=== PATIENT | male | born 1995 | race Caucasian/White ===

== ENCOUNTER 2017-02-27 11:22 | Emergency (ER) | payer OTHER ==
[2017-02-27 11:32] VITALS: O2SAT 98
[2017-02-27] MEDS ORDERED: MORPHINE SULFATE 10 MG/ML IV ONE (11:32)
[2017-02-27] MEDS ORDERED: Sodium Chloride 0.9% 1000 ML 1,000 ML IV STA (11:32)
[2017-02-27] MEDS ORDERED: TORAdol 30 mg Injection IV ONE (11:32)
[2017-02-27] MEDS ORDERED: BENADRYL 50 MG/ML IV ONE (11:32)
[2017-02-27] MEDS ORDERED: BENADRYL 50 MG/ML ONE (11:41)
[2017-02-27] MEDS ORDERED: TORAdol 30 mg Injection ONE (11:41)
[2017-02-27] MEDS ORDERED: Sodium Chloride 0.9% 1000 ML 1,000 ML ONE (11:42)
[2017-02-27] MEDS ORDERED: MORPHINE SULFATE 10 MG/ML ONE (11:42)
--- NOTE | 2017-02-27 11:43 | ERPHSYRPT ---
- History of Present Illness Time Seen by Provider: 02/27/17 11:32 Historian: patient Patient Subjective Stated Complaint: PT REPORTS WAKING UP THIS AM TO RIGHT SIDED ABD PAIN RADIATING TO GROIN ET BACK-STATES IT FEELS DIFFICULT TO URINATE- DENIES FEVER-DENIES DIFFICUTLY WITH BOWEL MOVEMENTS Triage Nursing Assessment: PT PALE WARM ET [id number] NONTENDER TO PALP- BOWEL SOUNDS PRESENT-ABD SOFT-RESP NONLABORED Physician History: CC: right flank pain Hx: 21 y/o patient with hx of kidney stone disease. He has had [address] scans. He awoke this AM with right flank pain radiating to the right groin. Some dysuria. Nausea present. No vomiting. No hematuria. No fever or chills. Pain is severe and awoke him from sleep. Timing/Duration: today Severity of Pain-Max: severe Severity of Pain-Current: severe Allergies/Adverse Reactions: No Known Drug Allergies Allergy (Verified 02/27/17 11:29) Home Medications: No Home Meds 1 ea UD 04/19/16 [History] Hx Tetanus, Diphtheria Vaccination/Date Given: Yes Hx Influenza Vaccination/Date Given: No Hx Pneumococcal Vaccination/Date Given: No Immunizations Up to Date: Yes - Review of Systems Constitutional: No Fever, No Chills Eyes: No Symptoms Ears, Nose, & Throat: No Symptoms Respiratory: No Symptoms Cardiac: No Chest Pain Abdominal/Gastrointestinal: Nausea, No Abdominal Pain, No Vomiting Genitourinary Symptoms: Dysuria, Hesitancy, Flank Pain (right) Musculoskeletal: Back Pain (right flank) Skin: No Rash Neurological: No Headache All Other Systems: Reviewed and Negative - Past Medical History Pertinent Past Medical History: No Neurological History: No Pertinent History ENT History: No Pertinent History Cardiac History: No Pertinent History Respiratory History: Asthma Endocrine Medical History: No Pertinent History Musculoskeletal History: No Pertinent History GI Medical History: No Pertinent History History: No Pertinent History Psycho-Social History: Depression Male Reproductive Disorders: No Pertinent History Other Medical History: Childhood asthma - Past Surgical History Past Surgical History: No Neuro Surgical History: No Pertinent History Cardiac: No Pertinent History Respiratory: No Pertinent History Gastrointestinal: No Pertinent History Genitourinary: No Pertinent History Musculoskeletal: No Pertinent History Male Surgical History: No Pertinent History - Social History Smoking Status: Current every day smoker How long have you smoked: YRS Exposure to second hand smoke: Yes Drug Use: none Patient Lives Alone: No - Nursing Vital Signs Nursing Vital Signs: Initial Vital Signs Temperature 97.4 F Temperature Source Oral Pulse Rate 63 Respiratory Rate 18 Blood Pressure [Right Arm] 121/75 Pain Intensity 7 - Physical Exam General Appearance: alert, thin Eye Exam: PERRL/EOMI Ears, Nose, Throat Exam: normal ENT inspection, moist mucous membranes Neck Exam: normal inspection, non-tender, supple Respiratory Exam: normal breath sounds, lungs clear Cardiovascular Exam: regular rate/rhythm, No murmur Gastrointestinal/Abdomen Exam: soft, No tenderness, No distention, No mass, No guarding Male Genitalia Exam: normal genitalia, No hernia, No testicular tenderness Back Exam: CVA tenderness (right) Extremity Exam: normal inspection, normal range of motion Neurologic Exam: alert, oriented x 3, cooperative, 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 II-XII nml as tested, sensation nml, No motor deficits Skin Exam: warm, dry, No rash SpO2 Interpretation: normal SpO2: 98 Oxygen Delivery: Room Air - Course Nursing assessment & vital signs reviewed: Yes - Radiology Exams KUB X-ray Interpretation: Teleradiologist Report, Negative - Radiology Ultrasound Exam renal Ultrasound: Other (no hydronephrosis per RDMS) Ordered Tests: Active Orders 24 hr Category Date Time Status Clean Catch Urine Specimen STAT Care 02/27/17 11:32 Active IV Insertion STAT Care 02/27/17 11:32 Active KIDNEY [US] Stat Exams 02/27/17 11:37 Taken KUB Stat Exams 02/27/17 11:36 Completed CBC W DIFF Stat Lab 02/27/17 11:30 Completed CMP Stat Lab 02/27/17 11:30 Completed UA W/ MICROSCOPIC Stat Lab 02/27/17 11:30 Completed Medication Summary Generic Name Dose Route Start Last Admin Trade Name Freq PRN Reason Stop Dose Admin Sodium Chloride 1,000 mls @ 999 mls/hr 02/27/17 11:32 02/27/17 11:51 Sodium Chloride 0.9% 1000 Ml IV 02/27/17 12:32 999 mls/hr .Q1H1M STA Administration Morphine Sulfate 4 mg 02/27/17 12:20 Morphine Sulfate 4 Mg Inj IV 02/27/17 12:21 STAT ONE Discontinued Medications Generic Name Dose Route Start Last Admin Trade Name Freq PRN Reason Stop Dose Admin Diphenhydramine HCl 25 mg 02/27/17 11:32 02/27/17 11:51 Benadryl 50 Mg/Ml IV 02/27/17 11:33 25 mg STAT ONE Administration Diphenhydramine HCl Confirm 02/27/17 11:41 Benadryl 50 Mg/Ml Administered 02/27/17 11:42 Dose 50 mg .ROUTE .STK-MED ONE Sodium Chloride Confirm 02/27/17 11:42 Sodium Chloride 0.9% 1000 Ml Administered 02/27/17 11:43 Dose 1,000 mls @ ud .ROUTE .STK-MED ONE Ketorolac Tromethamine 30 mg 02/27/17 11:32 02/27/17 11:51 Toradol 30 Mg Injection IV 02/27/17 11:33 30 mg STAT ONE Administration Ketorolac Tromethamine Confirm 02/27/17 11:41 Toradol 30 Mg Injection Administered 02/27/17 11:42 Dose 30 mg .ROUTE .STK-MED ONE Morphine Sulfate 6 mg 02/27/17 11:32 02/27/17 11:52 Morphine Sulfate 10 Mg/Ml IV 02/27/17 11:33 6 mg STAT ONE Administration Morphine Sulfate Confirm 02/27/17 11:42 Morphine Sulfate 10 Mg/Ml Administered 02/27/17 11:43 Dose 10 mg .ROUTE .STK-MED ONE Lab/Rad Data: Laboratory Result Diagrams 02/27/17 11:30 02/27/17 11:30 Laboratory Results 02/27/17 02/27/17 02/27/17 Range/Units 11:30 11:30 11:30 WBC 6.4 (4.0-10.5) K/mm3 RBC 5.57 (4.1-5.6) M/mm3 Hgb 16.3 (12.5-18.0) gm/dl Hct 47.6 (42-50) % MCV 85.5 (78-100) fl MCH 29.3 (26-32) pg MCHC 34.2 (32-36) g/dl RDW 12.8 (11.5-14.0) % Plt Count 216 (150-450) K/mm3 MPV 9.3 (6-9.5) fl Gran % 56.3 (36.0-66.0) % Lymphocytes % 35.6 (24.0-44.0) % Monocytes % 4.5 (0.0-12.0) % Eosinophils % 3.3 (0.00-5.0) % Basophils % 0.3 (0.0-0.4) % Basophils # 0.02 (0-0.4) Sodium 138 (136-145) mEq/L Potassium 4.1 (3.5-5.1) mEq/L Chloride 105 (98-107) mEq/L Carbon Dioxide 27.5 (21-32) mEq/L Anion Gap 9.7 (5-15) MEQ/L BUN 10 (9-20) mg/dL Creatinine 1.00 (0.55-1.30) mg/dl Estimated GFR > 60 ML/MIN Glucose 98 (70-110) MG/DL Calcium 9.5 (8.5-10.1) mg/dL Total Bilirubin 0.3 (0.2-1.0) mg/dL AST 29 (15-37) U/L ALT 29 (12-78) U/L Alkaline Phosphatase 72 (46-116) U/L Serum Total Protein 7.8 (6.4-8.2) gm/dL Albumin 4.1 (3.4-5.0) g/dL Ur Collection Type CLEAN CATCH Urine Color YELLOW (YELLOW) Urine Appearance CLEAR (CLEAR) Urine pH 6.5 (5-6) Ur Specific [place] 1.020 (1.005-1.025) Urine Protein 30 (Negative) Urine Glucose (UA) NEGATIVE (NEGATIVE) mg/dL Urine Ketones NEGATIVE (NEGATIVE) Urine Nitrite NEGATIVE (NEGATIVE) Urine Bilirubin SMALL (NEGATIVE) Urine Urobilinogen 4 (0-1) mg/dL Urine WBC (Auto) NEGATIVE (NEGATIVE) Urine RBC (Auto) MODERATE (0-5) José Miguel/ul Urine Microscopic RBC 10-15 (0-2) /HPF Urine Microscopic WBC 0-2 (0-5) /HPF Ur Epithelial Cells RARE (FEW) /HPF Urine Bacteria RARE (NEGATIVE) /HPF Urine Mucus MODERATE (NEGATIVE) /HPF Specimen Received [id number] - Progress Progress Note: 02/27/17 11:43 Will get UA, KUB, renal sonogram. 02/27/17 12:21 Pain medication given. He appears to have renal colic which is consistent with prior hx. Some blood in urine. Negative studies. Re-examined testicles and no point tenderness. He declines scrotal ultrasound as he also believes this is renal stone pain. Will empirically treat. Follow up with Dr garcia advised. Counseled pt/family regarding: lab results, diagnosis, need for follow-up, rad results - Departure Time of Disposition: 12:22 Departure Disposition: Home Clinical Impression: Right flank pain, Hematuria, hx renal stone disease Condition: Stable Critical Care Time: No Referrals: ANDRESSA GARCIA [ACTIVE STAFF] - Instructions: Kidney Stones, Testicular Pain Additional Instructions: Return to ER right away for testicle pain or swelling, fever, vomiting or concerns. No driving or operating machinery today or while taking norco. Follow up with Dr Garcia this week. Rx norco. Strain urine for stone. Prescriptions: Hydrocodone Bit/Acetaminophen [[place] 5-325 Tablet] 1 each PO Q6H PRN PRN #15 tablet PRN Reason: Pain
[2017-02-27 11:48] LABS: BASOPHIL % 0.3 % (0.0-0.4); Eosinophil % 3.3 % (0.00-5.0); Granulocytes % 56.3 % (36.0-66.0); Lymphocytes % 35.6 % (24.0-44.0); Mean Cell Volume 85.5 fl (78-100); Mean Corpuscular Hemoglobin 29.3 pg (26-32); Mean Platelet Volume 9.3 fl (6-9.5); Monocytes % 4.5 % (0.0-12.0); Platelet Count 216 K/mm3 (150-450); Red Blood Count 5.57 M/mm3 (4.1-5.6); Red Cell Distribution Width 12.8 % (11.5-14.0); White Blood Count 6.4 K/mm3 (4.0-10.5)
[2017-02-27 11:51] LABS: Collection Type CLEAN CATCH
[2017-02-27 11:52] LABS: COMPLETE URINE MICROSCOPIC? YES; Ph 6.5 (5-6)
[2017-02-27 12:01] LABS: Bacteria RARE /HPF (NEGATIVE); Epithelial Cells RARE /HPF (FEW); Mucus MODERATE /HPF (NEGATIVE); WBC 0-2 /HPF (0-5)
[2017-02-27 12:05] LABS: ALBUMIN 4.1 g/dL (3.4-5.0); ALKALINE PHOSPHATASE 72 U/L (46-116); ANION GAP 9.7 MEQ/L (5-15); BILIRUBIN,TOTAL 0.3 mg/dL (0.2-1.0); BLOOD UREA NITROGEN 10 mg/dL (9-20); CHLORIDE 105 mEq/L (98-107); Carbon Dioxide 27.5 mEq/L (21-32); Glucose 98 MG/DL (70-110); Potassium 4.1 mEq/L (3.5-5.1); SGOT/AST 29 U/L (15-37); SGPT/ALT 29 U/L (12-78); SODIUM 138 mEq/L (136-145); Total Protein 7.8 gm/dL (6.4-8.2)
--- NOTE | 2017-02-27 12:10 | XRAY ---
Indication: Right abdominal/flank pain. Comparison: November 03, 2011. KUB nonacute and nonobstructed. Solid organs osseous structures unremarkable. Impression: Stable negative KUB. CT renal stone study may yield further information if there is clinical concern for renal stone/obstructive uropathy.
[2017-02-27] MEDS ORDERED: MORPHINE SULFATE 4 MG INJ IV ONE (12:20)
[2017-02-27] MEDS ORDERED: MORPHINE SULFATE 4 MG INJ ONE (12:22)
[2017-02-27 12:29] VITALS: BP 106/62; PULSE 78
--- NOTE | 2017-02-27 12:36 | XRAY ---
Indication: Right abdomen/flank pain. Two-dimensional renal sonogram performed. Comparison: None Both kidneys normal in reniform shape with normal color perfusion. Right kidney measures 11.4 x 4.2 x 5.4 cm and the left measures 10.8 x 4.0 x 4.4 cm. No suspicious renal mass, hydronephrosis, or perinephric fluid. Cortical medullary differentiation is preserved without cortical thinning. Urinary bladder is empty and therefore not evaluated. Impression: Negative renal sonogram.
== END 2017-02-27 12:59 | disposition home or self-care (01) ==
LOC: ED 11:22
DX: R10.9 Unspecified abdominal pain (principal); R31.9 Hematuria, unspecified; N23 Unspecified renal colic; R30.0 Dysuria; R11.0 Nausea
CPT/HCPCS: 36000; 36415; 74000; 76770; 80053; 81000; 85025; 96360; 96374; 96375; 96376; 99284; J1200; J1885; J2270

== ENCOUNTER 2017-06-11 18:34 | Emergency (ER) | payer SELFPAY ==
[2017-06-11] MEDS ORDERED: TORAdol 30 mg Injection IV ONE (19:22)
[2017-06-11] MEDS ORDERED: Phenergan 25 MG INJ IV ONE (19:22)
--- NOTE | 2017-06-11 19:25 | ERPHSYRPT ---
- History of Present Illness Time Seen by Provider: 06/11/17 19:10 Historian: patient Exam Limitations: no limitations Patient Subjective Stated Complaint: pt co pain to right and left flank area since yesterday, has hx of kidney, no fever, nauseated Triage Nursing Assessment: pt walked in holding back, resp easy, skin w/d, pink , urine yellow and cloudy Physician History: SINCE YESTERDAY PT HAS HAD SHARP STABBING RIGHT LOWER BACK PAIN AND RIGHT FLANK PAIN WITH NAUSEA. LAST BM WAS YESTERDAY & WNL. PT DENIES FEVER, VOMITING, CHEST PAIN, SHORTNESS OF AIR. Allergies/Adverse Reactions: No Known Drug Allergies Allergy (Verified 06/11/17 18:47) Home Medications: No Home Meds [No Home Meds] 1 ea UD 04/19/16 [History] Hx Tetanus, Diphtheria Vaccination/Date Given: No Hx Influenza Vaccination/Date Given: No Hx Pneumococcal Vaccination/Date Given: No Immunizations Up to Date: Yes - Review of Systems Constitutional: No Fever Abdominal/Gastrointestinal: Nausea, Other (RIGHT FLANK AND RIGHT LOWER BACK PAIN ), No Vomiting, No Diarrhea All Other Systems: Reviewed and Negative - Past Medical History Pertinent Past Medical History: No Neurological History: No Pertinent History ENT History: No Pertinent History Cardiac History: No Pertinent History Respiratory History: Asthma Endocrine Medical History: No Pertinent History Musculoskeletal History: No Pertinent History GI Medical History: No Pertinent History History: No Pertinent History Psycho-Social History: Depression Male Reproductive Disorders: No Pertinent History Other Medical History: Childhood asthma,kidney stones - Past Surgical History Past Surgical History: No Neuro Surgical History: No Pertinent History Cardiac: No Pertinent History Respiratory: No Pertinent History Gastrointestinal: No Pertinent History Genitourinary: No Pertinent History Musculoskeletal: No Pertinent History Male Surgical History: No Pertinent History Other Surgical History: DENIES SURGERY - Social History Smoking Status: Current some day smoker How long have you smoked: YRS Exposure to second hand smoke: Yes Drug Use: none Patient Lives Alone: No - Nursing Vital Signs Nursing Vital Signs: Initial Vital Signs Temperature 98.3 F 06/11/17 18:43 Pulse Rate 72 06/11/17 18:43 Respiratory Rate 16 06/11/17 18:43 Blood Pressure 122/84 06/11/17 18:43 O2 Sat by Pulse Oximetry 99 06/11/17 18:43 Pain Scale Pain Intensity [] 8 Pain Intensity 6 - Physical Exam General Appearance: alert Eye Exam: PERRL/EOMI Ears, Nose, Throat Exam: pharynx normal, moist mucous membranes Neck Exam: normal inspection Respiratory Exam: lungs clear Cardiovascular Exam: normal heart sounds Gastrointestinal/Abdomen Exam: soft, normal bowel sounds, No tenderness Back Exam: normal range of motion Extremity Exam: normal inspection, No pedal edema Neurologic Exam: alert, cooperative Skin Exam: warm, dry SpO2 Interpretation: normal SpO2: 99 Oxygen Delivery: Room Air - Course Nursing assessment & vital signs reviewed: Yes - CT Exams Abdomen/Pelvis CT Interpretation: Discussed w/radiologist (COMPARED TO 04/19/16: NONOBSTRUCTING MICROCALCULUS IN EACH KIDNEY. MODERATE FECAL STASIS WITHOUT OBSTRUCTION. APPENDIX NOT SEEN. REMAINING ABD/PEL NEGATIVE.) Ordered Tests: Active Orders 24 hr Category Date Time Status Clean Catch Urine Specimen STAT Care 06/11/17 19:22 Active IV Insertion STAT Care 06/11/17 19:22 Active ABDOMEN AND PELVIS W/0 CONTRAS [CT] Stat Exams 06/11/17 19:23 Taken AMYLASE Stat Lab 06/11/17 19:15 Completed CBC W DIFF Stat Lab 06/11/17 19:15 Completed CMP Stat Lab 06/11/17 19:15 Completed LIPASE Stat Lab 06/11/17 19:15 Completed MAG [MAGNESIUM] Stat Lab 06/11/17 19:15 Completed UA W/RFX UR CULTURE Stat Lab 06/11/17 19:20 Completed Urine Triage Profile Stat Lab 06/11/17 19:20 Completed Medication Summary Generic Name Dose Route Start Last Admin Trade Name Freq PRN Reason Stop Dose Admin Sodium Chloride 1,000 mls @ 100 mls/hr 06/11/17 19:30 06/11/17 19:30 Sodium Chloride 0.9% 1000 Ml IV 07/11/17 19:29 100 mls/hr .Q10H MARIMAR Administration Discontinued Medications Generic Name Dose Route Start Last Admin Trade Name Freq PRN Reason Stop Dose Admin Ketorolac Tromethamine 30 mg 06/11/17 19:22 06/11/17 19:31 Toradol 30 Mg Injection IV 06/11/17 19:23 30 mg STAT ONE Administration Ketorolac Tromethamine Confirm 06/11/17 19:28 Toradol 30 Mg Injection Administered 06/11/17 19:29 Dose 30 mg .ROUTE .STK-MED ONE Promethazine HCl 12.5 mg 06/11/17 19:22 06/11/17 19:30 Phenergan 25 Mg Inj IV 06/11/17 19:23 12.5 mg STAT ONE Administration Promethazine HCl Confirm 06/11/17 19:28 Phenergan 25 Mg Inj Administered 06/11/17 19:29 Dose 25 mg .ROUTE .STK-MED ONE Lab/Rad Data: Laboratory Result Diagrams 06/11/17 19:15 06/11/17 19:15 Laboratory Results 06/11/17 06/11/17 06/11/17 Range/Units 19:20 19:20 19:15 WBC (4.0-10.5) K/mm3 RBC (4.1-5.6) M/mm3 Hgb (12.5-18.0) gm/dl Hct (42-50) % MCV (78-100) fl MCH (26-32) pg MCHC (32-36) g/dl RDW (11.5-14.0) % Plt Count (150-450) K/mm3 MPV (6-9.5) fl Gran % (36.0-66.0) % Lymphocytes % (24.0-44.0) % Monocytes % (0.0-12.0) % Eosinophils % (0.00-5.0) % Basophils % (0.0-0.4) % Basophils # (0-0.4) Sodium (136-145) mEq/L Potassium (3.5-5.1) mEq/L Chloride (98-107) mEq/L Carbon Dioxide (21-32) mEq/L Anion Gap (5-15) MEQ/L BUN (9-20) mg/dL Creatinine (0.55-1.30) mg/dl Estimated GFR ML/MIN Glucose (70-110) MG/DL Calcium (8.5-10.1) mg/dL Magnesium 2.0 (1.8-2.4) mg/dL Total Bilirubin (0.2-1.0) mg/dL AST (15-37) U/L ALT (12-78) U/L Alkaline Phosphatase (46-116) U/L Serum Total Protein (6.4-8.2) gm/dL Albumin (3.4-5.0) g/dL Amylase (25-115) U/L Lipase (73-393) U/L Ur Collection Type CLEAN CATCH Urine Color YELLOW (YELLOW) Urine Appearance CLOUDY (CLEAR) Urine pH 8.0 (5-6) Ur Specific [place] 1.010 (1.005-1.025) Urine Protein NEGATIVE (Negative) Urine Ketones NEGATIVE (NEGATIVE) Urine Blood NEGATIVE (0-5) José Miguel/ul Urine Nitrite NEGATIVE (NEGATIVE) Urine Bilirubin NEGATIVE (NEGATIVE) Urine Urobilinogen NORMAL (0-1) mg/dL Ur Leukocyte Esterase NEGATIVE (NEGATIVE) Urine Glucose NEGATIVE (NEGATIVE) mg/dL Urine Opiates Level NEG. (NEGATIVE) Ur Methadone NEG. (NEGATIVE) Urine Barbiturates NEG. (NEGATIVE) Ur Phencyclidine (PCP) NEG. (NEGATIVE) Urine Amphetamine NEG. (NEGATIVE) U Benzodiazepine Level NEG. (NEGATIVE) Urine Cocaine NEG. (NEGATIVE) Urine Marijuana (THC) POS. (NEGATIVE) Specimen Received 06/11/17 1930 06/11/17 06/11/17 Range/Units 19:15 19:15 WBC 8.5 (4.0-10.5) K/mm3 RBC 5.21 (4.1-5.6) M/mm3 Hgb 15.4 (12.5-18.0) gm/dl Hct 44.9 (42-50) % MCV 86.2 (78-100) fl MCH 29.6 (26-32) pg MCHC 34.3 (32-36) g/dl RDW 13.5 (11.5-14.0) % Plt Count 239 (150-450) K/mm3 MPV 9.5 (6-9.5) fl Gran % 58.5 (36.0-66.0) % Lymphocytes % 32.8 (24.0-44.0) % Monocytes % 5.1 (0.0-12.0) % Eosinophils % 3.2 (0.00-5.0) % Basophils % 0.4 (0.0-0.4) % Basophils # 0.03 (0-0.4) Sodium 142 (136-145) mEq/L Potassium 3.7 (3.5-5.1) mEq/L Chloride 105 (98-107) mEq/L Carbon Dioxide 25.7 (21-32) mEq/L Anion Gap 15.0 (5-15) MEQ/L BUN 12 (9-20) mg/dL Creatinine 0.96 (0.55-1.30) mg/dl Estimated GFR > 60 ML/MIN Glucose 112 H (70-110) MG/DL Calcium 9.2 (8.5-10.1) mg/dL Magnesium (1.8-2.4) mg/dL Total Bilirubin 0.30 (0.2-1.0) mg/dL AST 93 H (15-37) U/L ALT 194 H (12-78) U/L Alkaline Phosphatase 85 (46-116) U/L Serum Total Protein 7.9 (6.4-8.2) gm/dL Albumin 4.2 (3.4-5.0) g/dL Amylase 71 (25-115) U/L Lipase 149 (73-393) U/L Ur Collection Type Urine Color (YELLOW) Urine Appearance (CLEAR) Urine pH (5-6) Ur Specific [place] (1.005-1.025) Urine Protein (Negative) Urine Ketones (NEGATIVE) Urine Blood (0-5) José Miguel/ul Urine Nitrite (NEGATIVE) Urine Bilirubin (NEGATIVE) Urine Urobilinogen (0-1) mg/dL Ur Leukocyte Esterase (NEGATIVE) Urine Glucose (NEGATIVE) mg/dL Urine Opiates Level (NEGATIVE) Ur Methadone (NEGATIVE) Urine Barbiturates (NEGATIVE) Ur Phencyclidine (PCP) (NEGATIVE) Urine Amphetamine (NEGATIVE) U Benzodiazepine Level (NEGATIVE) Urine Cocaine (NEGATIVE) Urine Marijuana (THC) (NEGATIVE) Specimen Received - Departure Time of Disposition: 20:50 Departure Disposition: Home Clinical Impression: RIGHT LOWER BACK/FLANK PAIN Condition: Stable Critical Care Time: No Referrals: DOCTOR,NO FAMILY [Primary Care Provider] - Instructions: Low Back Pain Additional Instructions: FOLLOW UP WITH PRIVATE DOCTOR TOMORROW. Prescriptions: Naproxen [Naprosyn] 500 mg PO [id number] PRN #20 tablet PRN Reason: Pain
[2017-06-11] MEDS ORDERED: Sodium Chloride 0.9% 1000 ML 1,000 ML ONE (19:28)
[2017-06-11] MEDS ORDERED: TORAdol 30 mg Injection ONE (19:28)
[2017-06-11] MEDS ORDERED: Phenergan 25 MG INJ ONE (19:28)
[2017-06-11 19:29] LABS: BASOPHIL % 0.4 % (0.0-0.4); Eosinophil % 3.2 % (0.00-5.0); Granulocytes % 58.5 % (36.0-66.0); Lymphocytes % 32.8 % (24.0-44.0); Mean Cell Volume 86.2 fl (78-100); Mean Corpuscular Hemoglobin 29.6 pg (26-32); Mean Platelet Volume 9.5 fl (6-9.5); Monocytes % 5.1 % (0.0-12.0); Platelet Count 239 K/mm3 (150-450); Red Blood Count 5.21 M/mm3 (4.1-5.6); Red Cell Distribution Width 13.5 % (11.5-14.0); White Blood Count 8.5 K/mm3 (4.0-10.5)
[2017-06-11] MEDS ORDERED: Sodium Chloride 0.9% 1000 ML 1,000 ML IV SCH (19:30)
[2017-06-11 19:41] LABS: ADD URINE CULTURE? NO (NO); Bilirubin NEGATIVE (NEGATIVE); Blood NEGATIVE Ery/ul (0-5); COMPLETE URINE MICROSCOPIC? NO; Collection Type CLEAN CATCH; Glucose NEGATIVE (NEGATIVE); Leukocyte Esterase NEGATIVE (NEGATIVE)
[2017-06-11 19:48] LABS: ALBUMIN 4.2 g/dL (3.4-5.0); ALKALINE PHOSPHATASE 85 U/L (46-116); BLOOD UREA NITROGEN 12 mg/dL (9-20); CHLORIDE 105 mEq/L (98-107); Carbon Dioxide 25.7 mEq/L (21-32); Glucose 112 MG/DL (70-110); LIPASE 149 U/L (73-393); Potassium 3.7 mEq/L (3.5-5.1); SGOT/AST 93 U/L (15-37); SGPT/ALT 194 U/L (12-78); SODIUM 142 mEq/L (136-145); Total Protein 7.9 gm/dL (6.4-8.2)
[2017-06-11] MEDS ORDERED: MORPHINE SULFATE 2 MG INJ IV ONE (20:49)
[2017-06-11] MEDS ORDERED: MORPHINE SULFATE 2 MG INJ ONE (20:52)
[2017-06-11 21:01] VITALS: BP 110/60; PULSE 76; O2SAT 100
--- NOTE | 2017-06-12 08:31 | XRAY ---
Indication: Right flank pain. History kidney stone. Multiple contiguous axial images obtained through the abdomen and pelvis without contrast as ordered. Comparison: April 19, 2016. Lung bases clear. Heart is not enlarged. Stomach is distended with food. Noncontrasted bowel loops appear nonobstructed. There is now moderate diffuse scattered colonic fecal debris. Appendix not seen. No free fluid/air. Stable nonobstructing left renal micro-calculus with new nonobstructing punctate right renal calculus. Gallbladder is contracted without gallstones. Remaining liver, pancreas, spleen, adrenal glands, kidneys, ureters, bladder, and aorta appear unremarkable for noncontrast exam. Osseous structures intact. Impression: 1. Nonobstructing micro-calculus in each kidney. 2. Fecal stasis without obstruction. 3. No acute intra-abdominal/pelvic abnormalities on this noncontrast exam. CT DI 8.25
== END 2017-06-11 21:02 | disposition home or self-care (01) ==
LOC: ED 18:34
DX: M54.5 Low back pain (principal); R10.9 Unspecified abdominal pain
CPT/HCPCS: 36000; 36415; 74176; 80053; 80307; 81002; 82150; 83690; 83735; 85025; 96360; 96361; 96374; 96375; 99284; J1885; J2270; J2550

== ENCOUNTER 2017-07-31 14:04 | Emergency (ER) | payer OTHER, SELFPAY ==
[2017-07-31] MEDS ORDERED: TORAdol 30 mg Injection IM ONE (14:40)
--- NOTE | 2017-07-31 14:44 | ERPHSYRPT ---
- History of Present Illness Time Seen by Provider: 07/31/17 14:36 Source: patient Exam Limitations: no limitations Patient Subjective Stated Complaint: sharp lower back pain for three days. denies any injury. states he stands at work at [employer] for long periods. Triage Nursing Assessment: ambulated to room per self without difficulty. skin w/d, color normal. liang without difficulty. Physician History: 22-year-old white male arrives with complaint of pain in the right low lumbosacral region sharp worse with movement symptoms for 2-3 days. He denies injury he does state he stands a lot at work. Denies any hematuria dysuria Patient states he has had kidney stones in the past for this feels different. Past medical history kidney stones, asthma, depression Past surgical history is negative Timing/Duration: day(s) (2-3 days) Method of Injury: unknown Quality: sharp Back Pain Location: lumbar spine (lumbosacral region) Severity of Pain-Max: moderate Severity of Pain-Current: moderate Modifying Factors: Improves With: movement. Worsens With: cold therapy, immobilization, pain medication, rest Associated Symptoms: lower back pain, No fever, No chills, No sweating, No urinary incontinence, No loss of bowel control, No constipation, No nausea, No vomiting, No problems urinating, No light-headedness, No dizziness, No numbness in legs/feet, No weakness, No sensory/motor loss, No tingling in legs/feet, No muscle spasms Previous symptoms: no prior history Allergies/Adverse Reactions: No Known Drug Allergies Allergy (Verified 07/31/17 14:22) Home Medications: No Home Meds [No Home Meds] 1 abhinav BRANDY 04/19/16 [History] Hx Tetanus, Diphtheria Vaccination/Date Given: No Hx Influenza Vaccination/Date Given: No Hx Pneumococcal Vaccination/Date Given: No - Review of Systems Constitutional: No Fever, No Chills Eyes: No Symptoms Ears, Nose, & Throat: No Symptoms Respiratory: No Cough, No Dyspnea Cardiac: No Chest Pain, No Edema, No Syncope Abdominal/Gastrointestinal: No Abdominal Pain, No Nausea, No Vomiting, No Diarrhea Genitourinary Symptoms: No Dysuria Musculoskeletal: Back Pain, No Arthralgias, No Neck Pain, No Deformity, No Fall , No Injury, No Joint Redness, No Joint Pain, No Joint Swelling, No Myalgias, No Other Skin: No Rash Neurological: No Dizziness, No Focal Weakness, No Sensory Changes Psychological: No Symptoms Endocrine: No Symptoms All Other Systems: Reviewed and Negative - Past Medical History Pertinent Past Medical History: Yes Neurological History: No Pertinent History ENT History: No Pertinent History Cardiac History: No Pertinent History Respiratory History: Asthma Endocrine Medical History: No Pertinent History Musculoskeletal History: No Pertinent History GI Medical History: No Pertinent History History: No Pertinent History Psycho-Social History: Depression Male Reproductive Disorders: No Pertinent History Other Medical History: Childhood asthma,kidney stones - Past Surgical History Past Surgical History: No Neuro Surgical History: No Pertinent History Cardiac: No Pertinent History Respiratory: No Pertinent History Gastrointestinal: No Pertinent History Genitourinary: No Pertinent History Musculoskeletal: No Pertinent History Male Surgical History: No Pertinent History Other Surgical History: DENIES SURGERY - Social History Smoking Status: Current every day smoker How long have you smoked: 10 Exposure to second hand smoke: No Drug Use: none Patient Lives Alone: No - Nursing Vital Signs Nursing Vital Signs: Initial Vital Signs Temperature 97.3 F 07/31/17 14:16 Pulse Rate 70 07/31/17 14:16 Respiratory Rate 16 07/31/17 14:16 Blood Pressure 140/91 07/31/17 14:16 O2 Sat by Pulse Oximetry 100 07/31/17 14:16 Pain Scale Pain Intensity 7 - Physical Exam General Appearance: moderate distress Eye Exam: PERRL/EOMI, eyes nml inspection Ears, Nose, Throat Exam: normal ENT inspection, TMs normal, pharynx normal, moist mucous membranes, No dry mucous membranes, No TM abnormal (R), No TM abnormal (L), No pharyngeal erythema, No tonsillar exudate Neck Exam: normal inspection, non-tender, supple, full range of motion, No meningismus, No midline tenderness Respiratory Exam: normal breath sounds, lungs clear, No respiratory distress Cardiovascular Exam: regular rate/rhythm, normal heart sounds Gastrointestinal Exam: soft, No tenderness, No mass Back Exam: other (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 clerk with 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 right low lumosacral area) Extremity Exam: normal inspection, normal range of motion, No calf tenderness, No pedal edema Peripheral Pulses: dorsalis-pedis (R): 2+, dorsalis-pedis (L): 2+ Neurologic Exam: alert, oriented x 3, cooperative, hand cutter II-XII nml as tested, normal mood/affect, nml station & gait, sensation nml, No motor deficits Skin Exam: normal color, warm, dry, No rash SpO2 Interpretation: normal (100%) SpO2: 100 Oxygen Delivery: Room Air - Course Nursing assessment & vital signs reviewed: Yes - Radiology Exams L-Spine X-ray Interpretation: Discussed w/ radiologist (Negative lumbar spine, Known left microcalculus) Ordered Tests: Active Orders 24 hr Category Date Time Status LUMBAR LIMITED (2 OR 3 VIEWS) Stat Exams 07/31/17 14:40 Completed Medication Summary Discontinued Medications Generic Name Dose Route Start Last Admin Trade Name Freq PRN Reason Stop Dose Admin Ketorolac Tromethamine 60 mg 07/31/17 14:40 07/31/17 15:04 Toradol 30 Mg Injection IM 07/31/17 14:41 60 mg STAT ONE Administration Ketorolac Tromethamine Confirm 07/31/17 15:02 Toradol 30 Mg Injection Administered 07/31/17 15:03 Dose 60 mg .ROUTE .[employer] ONE - Progress Progress: improved Progress Note: 07/31/17 15:11 Patient with negative lumbar spine x-rays patient does have a known left renal micro-calculi. Will place patient on Chandler Flexeril to take Advil at home. . - Departure Time of Disposition: 15:12 Departure Disposition: Home Clinical Impression: Back pain Qualifiers: Back pain location: low back pain Chronicity: acute Back pain laterality: right Sciatica presence: without sciatica Qualified Code(s): M54.5 - Low back pain Condition: Fair Critical Care Time: No Referrals: DOCTOR,NO FAMILY [Primary Care Provider] - Instructions: Low Back Pain Additional Instructions: Return home. Advil 2-3 tablets orally 3 times a day with food for 5 days. Flexeril 10 mg orally 3 times a day for 5 days. Chandler 5/325 #12 one orally every 4-6 hours as needed for pain. Follow-up with your family doctor if symptoms are worse, no better in 48 hours, or persist longer than one week. Return for acute distress or for severe symptoms. Prescriptions: Cyclobenzaprine HCl [Flexeril] 10 mg PO TID #15 tablet Hydrocodone Bit/Acetaminophen [Chandler 5/325Mg] 1 tab PO Q4-6HPRN PRN #12 tablet PRN Reason: Pain
[2017-07-31] MEDS ORDERED: TORAdol 30 mg Injection ONE (15:02)
--- NOTE | 2017-07-31 15:06 | XRAY ---
Indication: Right-sided low back pain. No known injury. Comparison: None 3 views of the lumbar spine demonstrates 5 lumbar vertebral segments in normal alignment with vertebral body heights and disc spaces preserved. No acute fracture, subluxation, or suspicious bony lesions. Incidental CT proven left renal micro-calculus. Impression: Negative lumbar spine. Known left renal micro-calculus.
[2017-07-31 15:08] VITALS: BP 117/79; PULSE 64
[2017-07-31 15:10] VITALS: O2SAT 100
== END 2017-07-31 15:55 | disposition home or self-care (01) ==
LOC: ED 14:04
DX: M54.5 Low back pain (principal)
CPT/HCPCS: 72100; 99282; 99284; J1885

== ENCOUNTER 2017-08-07 19:29 | Emergency (ER) | payer OTHER, SELFPAY ==
[2017-08-07] MEDS ORDERED: TORAdol 30 mg Injection IV ONE (19:57)
[2017-08-07] MEDS ORDERED: Sodium Chloride 0.9% 1000 ML 1,000 ML IV STA (19:57)
--- NOTE | 2017-08-07 20:02 | ERPHSYRPT ---
- History of Present Illness Time Seen by Provider: 08/07/17 19:50 Source: patient Exam Limitations: no limitations Physician History: 22 y/o male comes back to the ER with complaints of bilateral flank pain for the past 2 weeks. Pt was seen on 07/31 for back pain related to muscle related. Pt describes the pain as sharp, constant, 9/10, and not relieved by norco and advil. Pt says now it does feel like a kidney stone he has had in the past. Pt denies any fever, chills, abdominal pain, nausea, vomiting or urinary symptoms. Timing/Duration: day(s) Activites at Onset: none Quality: sharpness Onset Location: right flank, left flank Pain Radiation: none Severity of Pain-Max: severe Severity of Pain-Current: severe Modifying Factors: Improves With: nothing Associated Symptoms: denies symptoms Prior abdominal problems: similar symptoms Sexual intercourse history: non-contributory Allergies/Adverse Reactions: No Known Drug Allergies Allergy (Verified 07/31/17 14:22) Home Medications: No Home Meds [No Home Meds] 1 [facility] 04/19/16 [History] Hx Tetanus, Diphtheria Vaccination/Date Given: No Hx Influenza Vaccination/Date Given: No Hx Pneumococcal Vaccination/Date Given: No - Past Medical History Pertinent Past Medical History: Yes Neurological History: No Pertinent History ENT History: No Pertinent History Cardiac History: No Pertinent History Respiratory History: Asthma Endocrine Medical History: No Pertinent History Musculoskeletal History: No Pertinent History GI Medical History: No Pertinent History History: No Pertinent History Psycho-Social History: Depression Male Reproductive Disorders: No Pertinent History Other Medical History: Childhood asthma,kidney stones - Past Surgical History Past Surgical History: No Neuro Surgical History: No Pertinent History Cardiac: No Pertinent History Respiratory: No Pertinent History Gastrointestinal: No Pertinent History Genitourinary: No Pertinent History Musculoskeletal: No Pertinent History Male Surgical History: No Pertinent History Other Surgical History: DENIES SURGERY - Social History Smoking Status: Current every day smoker How long have you smoked: 10 Exposure to second hand smoke: No Drug Use: none Patient Lives Alone: No - Review of Systems Constitutional: No Fever, No Chills Eyes: No Symptoms Ears, Nose, & Throat: No Symptoms Respiratory: No Cough, No Dyspnea Cardiac: No Chest Pain, No Edema, No Syncope Abdominal/Gastrointestinal: No Abdominal Pain, No Nausea, No Vomiting, No Diarrhea Genitourinary Symptoms: Flank Pain, No Dysuria, No Frequency, No Hematuria Musculoskeletal: No Back Pain, No Neck Pain Skin: No Rash Neurological: No Dizziness, No Focal Weakness, No Sensory Changes Psychological: No Symptoms Endocrine: No Symptoms All Other Systems: Reviewed and Negative - Nursing Vital Signs Nursing Vital Signs: Initial Vital Signs Temperature 97.7 F 08/07/17 20:06 Pulse Rate 68 08/07/17 20:06 Respiratory Rate 18 08/07/17 20:06 Blood Pressure 121/55 08/07/17 20:06 O2 Sat by Pulse Oximetry 97 08/07/17 20:06 Pain Scale Pain Intensity [Lower Back] 8 Pain Intensity 3 - Physical Exam General Appearance: mild distress, alert Eye Exam: PERRL/EOMI Ears, Nose, Throat Exam: pharynx normal, moist mucous membranes Neck Exam: normal inspection, supple Respiratory Exam: normal breath sounds, lungs clear Cardiovascular Exam: regular rate/rhythm, No edema Gastrointestinal/Abdomen Exam: soft, normal bowel sounds, No tenderness Back Exam: normal inspection, CVA tenderness Extremity Exam: normal inspection, normal range of motion, No pedal edema Neurologic Exam: alert, oriented x 3, cooperative, sensation nml, No motor deficits Skin Exam: normal color, warm, dry, No rash - Course Nursing assessment & vital signs reviewed: Yes Ordered Tests: Active Orders 24 hr Category Date Time Status IV Insertion STAT Care 08/07/17 19:57 Active ABDOMEN AND PELVIS W/0 CONTRAS [CT] Stat Exams 08/07/17 19:56 Taken BMP Stat Lab 08/07/17 20:15 Completed CBC W DIFF Stat Lab 08/07/17 20:15 Completed UA W/RFX UR CULTURE Stat Lab 08/07/17 20:30 Completed Medication Summary Discontinued Medications Generic Name Dose Route Start Last Admin Trade Name Freq PRN Reason Stop Dose Admin Sodium Chloride 1,000 mls @ 999 mls/hr 08/07/17 19:57 08/07/17 20:32 Sodium Chloride 0.9% 1000 Ml IV 08/07/17 20:57 999 mls/hr .Q1H1M STA Administration Sodium Chloride Confirm 08/07/17 20:18 Sodium Chloride 0.9% 1000 Ml Administered 08/07/17 20:19 Dose 1,000 mls @ ud .ROUTE .STK-MED ONE Ketorolac Tromethamine 30 mg 08/07/17 19:57 08/07/17 20:34 Toradol 30 Mg Injection IV 08/07/17 19:58 30 mg STAT ONE Administration Ketorolac Tromethamine Confirm 08/07/17 20:18 Toradol 30 Mg Injection Administered 08/07/17 20:19 Dose 30 mg .ROUTE .STK-MED ONE Lab/Rad Data: Laboratory Result Diagrams 08/07/17 20:15 08/07/17 20:15 Laboratory Results 08/07/17 08/07/17 08/07/17 Range/Units 20:30 20:15 20:15 WBC 11.2 H (4.0-10.5) K/mm3 RBC 5.32 (4.1-5.6) M/mm3 Hgb 15.6 (12.5-18.0) gm/dl Hct 45.4 (42-50) % MCV 85.3 (78-100) fl MCH 29.3 (26-32) pg MCHC 34.4 (32-36) g/dl RDW 13.1 (11.5-14.0) % Plt Count 254 (150-450) K/mm3 MPV 8.9 (6-9.5) fl Gran % 67.7 H (36.0-66.0) % Lymphocytes % 25.7 (24.0-44.0) % Monocytes % 4.8 (0.0-12.0) % Eosinophils % 1.6 (0.00-5.0) % Basophils % 0.2 (0.0-0.4) % Basophils # 0.02 (0-0.4) Sodium 139 (136-145) mEq/L Potassium 4.0 (3.5-5.1) mEq/L Chloride 101 (98-107) mEq/L Carbon Dioxide 28.7 (21-32) mEq/L Anion Gap 13.3 (5-15) MEQ/L BUN 12 (9-20) mg/dL Creatinine 0.77 (0.55-1.30) mg/dl Estimated GFR > 60 ML/MIN Glucose 83 (70-110) MG/DL Calcium 9.8 (8.5-10.1) mg/dL Ur Collection Type CLEAN CATCH Urine Color YELLOW (YELLOW) Urine Appearance CLEAR (CLEAR) Urine pH 5.5 (5-6) Ur Specific [place] 1.020 (1.005-1.025) Urine Protein NEGATIVE (Negative) Urine Ketones NEGATIVE (NEGATIVE) Urine Blood NEGATIVE (0-5) José Miguel/ul Urine Nitrite NEGATIVE (NEGATIVE) Urine Bilirubin NEGATIVE (NEGATIVE) Urine Urobilinogen NORMAL (0-1) mg/dL Ur Leukocyte Esterase NEGATIVE (NEGATIVE) Urine Culture Reflexed NO (NO) Urine Glucose NEGATIVE (NEGATIVE) mg/dL Specimen Received 08/07/17 2030 - Progress Progress: improved Progress Note: 08/07/17 21:26 Pt feels much better after receiving toradol and NS fluids. The CT scan abd/ pelvis shows bilateral nephrolithiasis but none in the ureters. The labs are unremarkable. Pt will be d/c home with toradol for muscularskeletal back apin. - Departure Time of Disposition: 21:27 Departure Disposition: Home Clinical Impression: Back pain Qualifiers: Back pain location: low back pain Chronicity: unspecified Back pain laterality : bilateral Sciatica presence: without sciatica Qualified Code(s): M54.5 - Low back pain Condition: Stable Critical Care Time: No Referrals: DOCTOR,NO FAMILY [Primary Care Provider] - Instructions: Low Back Pain Additional Instructions: Follow up with your primary care doctor if you should continue to have back pain. Prescriptions: Ketorolac Tromethamine [Toradol] 10 mg PO QID PRN #20 tablet PRN Reason: Pain
[2017-08-07 20:16] VITALS: O2SAT 97
[2017-08-07] MEDS ORDERED: TORAdol 30 mg Injection ONE (20:18)
[2017-08-07] MEDS ORDERED: Sodium Chloride 0.9% 1000 ML 1,000 ML ONE (20:18)
[2017-08-07 20:20] LABS: BASOPHIL % 0.2 % (0.0-0.4); Eosinophil % 1.6 % (0.00-5.0); Granulocytes % 67.7 % (36.0-66.0); Lymphocytes % 25.7 % (24.0-44.0); Mean Cell Volume 85.3 fl (78-100); Mean Corpuscular Hemoglobin 29.3 pg (26-32); Mean Platelet Volume 8.9 fl (6-9.5); Monocytes % 4.8 % (0.0-12.0); Platelet Count 254 K/mm3 (150-450); Red Blood Count 5.32 M/mm3 (4.1-5.6); Red Cell Distribution Width 13.1 % (11.5-14.0); White Blood Count 11.2 K/mm3 (4.0-10.5)
[2017-08-07 20:51] LABS: ANION GAP 13.3 MEQ/L (5-15); BLOOD UREA NITROGEN 12 mg/dL (9-20); CHLORIDE 101 mEq/L (98-107); Carbon Dioxide 28.7 mEq/L (21-32); Glucose 83 MG/DL (70-110); SODIUM 139 mEq/L (136-145)
[2017-08-07 20:59] LABS: ADD URINE CULTURE? NO (NO); Bilirubin NEGATIVE (NEGATIVE); Blood NEGATIVE Ery/ul (0-5); COMPLETE URINE MICROSCOPIC? NO; Collection Type CLEAN CATCH; Glucose NEGATIVE (NEGATIVE); Leukocyte Esterase NEGATIVE (NEGATIVE)
[2017-08-07 21:36] VITALS: BP 112/70; PULSE 60
--- NOTE | 2017-08-08 20:23 | XRAY ---
Exam: CT of the abdomen and pelvis without IV contrast from 08/07/2017. CTDI: 9.97 Comparison: CT of the abdomen and pelvis without IV contrast from 06/11/2017. Indication: Bilateral flank pain 2 weeks with difficulty urinating, rule out renal stone, no hematuria, history of stones, no prior abdominal surgery. Technique: Non-IV contrast axial images were obtained through the abdomen and pelvis. Reconstructed coronal and sagittal images were created and reviewed. Findings: At the anterior lateral aspect of the right lung base on axial image #3 of series #3 I see a 3.5 mm nodule. This was not included on the prior CT of the abdomen from 06/11/2017. If the patient is at low risk for developing malignancy, no further workup would be suggested by the 2017 [employer] guidelines for incidental pulmonary nodules. If the patient is at high risk for developing malignancy, then further evaluation with an optional CT of the chest at 1 year is suggested by the same guidelines.. The remainder of the lung bases appears unremarkable. Assessment of the solid organs is limited without IV contrast. The liver appears grossly unremarkable. No dense calcifications are seen within a normal sized gallbladder. The spleen appears mildly enlarged measuring a maximum of 14.7 cm in height on the sagittal images. No focal splenic mass is seen. The pancreas and adrenal glands appear normal. The kidneys are of average size and shape. Within the anterior aspect of the upper pole of the right kidney I note a 2-3 mm nonobstructing stone representing no change from 06/11/2017. In addition, within the lateral aspect of the upper pole of the left kidney there is a 4.2 mm in diameter nonobstructing stone representing no significant change.. No other renal calculi are seen. There is no hydronephrosis. The abdominal aorta appears of normal size. No abnormal retroperitoneal lymphadenopathy is seen. There is no free air. The anterior abdominal wall appears intact. Moderate colonic stool burden is seen. Consider constipation. I see no bowel obstruction. There is a small amount of stool within the terminal ileum. This may be due to a patulous ileocecal valve or fecal stasis. I see no findings of appendicitis. No ureteral stones are seen. The urinary bladder is adequately distended and reveals no wall thickening or intraluminal stones. There is no free fluid within the pelvis. No abnormally enlarged pelvic lymph nodes are seen. The prostate gland and seminal vesicles appear unremarkable. I again see moderate stool within the rectosigmoid colon. The skeleton reveals no acute fracture or aggressive bone lesion. Impression: 1. A single stone is seen within the upper pole of each kidney representing no change from 06/11/2017. I see no evidence of renal obstruction or hydronephrosis. No definite ureteral calculus or urinary bladder stone is seen. 2. Mild splenomegaly with the greatest height of the spleen seen on the sagittal images measuring 14.7 cm. In retrospect, this is similar to 06/11/2017. 3. Moderate colonic stool burden is again seen. 4. Nonspecific 3.5 mm lung nodule at the anterior lateral right lung base on axial image 3 of series. See above discussion.
== END 2017-08-07 21:36 | disposition home or self-care (01) ==
LOC: ED 19:29
DX: M54.5 Low back pain (principal); R10.9 Unspecified abdominal pain
CPT/HCPCS: 36000; 36415; 74176; 80048; 81002; 85025; 96374; 99283; J1885

== ENCOUNTER 2017-09-17 18:37 | Emergency (ER) | payer OTHER ==
--- NOTE | 2017-09-17 19:55 | ERPHSYRPT ---
- History of Present Illness Time Seen by Provider: 09/17/17 19:47 Historian: patient Exam Limitations: no limitations Patient Subjective Stated Complaint: fees like his kidney stone has moved. nausea without vomiting. left back pain. Triage Nursing Assessment: alert pain in left flank area, non radiating. difficulty urinating. states urine is dark. denies abdominal pain. nausea without vomiting Physician History: This is a 22-year-old white male he arrives with complaint of pain in his left flank symptoms since this morning patient feels like he has a kidney stone that has moved patient was seen in the past that had a kidney stone in the kidneys but had never had urolithiasis she was seen approximately a month ago for this twice. He denies hematuria dysuria is pain in the left flank. Past medical history includes depression and kidney stones. Past surgical history is negative Social history patient denies tobacco alcohol or illicit drug use Timing/Duration: today Activities at Onset: none Quality: sharpness Abdominal Pain Onset Location: other (left flank) Pain Radiation: no radiation Severity of Pain-Max: moderate Severity of Pain-Current: moderate Modifying Factors: Improves With: nothing Associated Symptoms: back (left flank pain), No chest pain, No diaphoresis, No diarrhea, No fever/chills, No fatigue, No headache, No heartburn, No loss of appetite, No nausea, No neck pain, No rash, No shortness of breath, No syncope, No testicular pain, No vomiting (we will when somebody dumped Solor), No weakness Previous symptoms: same symptoms as today (Will W to behind in the your,) Allergies/Adverse Reactions: No Known Drug Allergies Allergy (Verified 07/31/17 14:22) Home Medications: No Home Meds [No Home Meds] 1 abhinav UD 04/19/16 [History] Hx Tetanus, Diphtheria Vaccination/Date Given: No Hx Influenza Vaccination/Date Given: No Hx Pneumococcal Vaccination/Date Given: No Immunizations Up to Date: Yes - Review of Systems Constitutional: No Fever, No Chills Eyes: No Symptoms Ears, Nose, & Throat: No Symptoms Respiratory: No Cough, No Dyspnea Cardiac: No Chest Pain, No Edema, No Syncope Abdominal/Gastrointestinal: No Abdominal Pain, No Nausea, No Vomiting, No Diarrhea Genitourinary Symptoms: Flank Pain (left flank pain), No Dysuria, No Frequency, No Hematuria Musculoskeletal: No Back Pain, No Neck Pain Skin: No Symptoms, No Rash Neurological: No Dizziness, No Focal Weakness, No Sensory Changes Psychological: No Symptoms Endocrine: No Symptoms All Other Systems: Reviewed and Negative - Past Medical History Pertinent Past Medical History: Yes Neurological History: No Pertinent History ENT History: No Pertinent History Cardiac History: No Pertinent History Respiratory History: Asthma Endocrine Medical History: No Pertinent History Musculoskeletal History: No Pertinent History GI Medical History: No Pertinent History History: No Pertinent History Psycho-Social History: Depression Male Reproductive Disorders: No Pertinent History Other Medical History: Childhood asthma,kidney stones - Past Surgical History Past Surgical History: Yes Neuro Surgical History: No Pertinent History Cardiac: No Pertinent History Respiratory: No Pertinent History Gastrointestinal: No Pertinent History Genitourinary: No Pertinent History Musculoskeletal: No Pertinent History Male Surgical History: No Pertinent History Other Surgical History: DENIES SURGERY - Social History Smoking Status: Current every day smoker How long have you smoked: 10 Exposure to second hand smoke: No Drug Use: none Patient Lives Alone: No - Nursing Vital Signs Nursing Vital Signs: Initial Vital Signs Temperature 97.8 F 09/17/17 18:58 Pulse Rate 80 09/17/17 18:58 Respiratory Rate 18 09/17/17 18:58 Blood Pressure 124/78 09/17/17 18:58 O2 Sat by Pulse Oximetry 99 09/17/17 18:58 Pain Scale Pain Intensity 8 - Physical Exam General Appearance: no apparent distress, alert Eye Exam: PERRL/EOMI, eyes nml inspection Ears, Nose, Throat Exam: normal ENT inspection, pharynx normal, moist mucous membranes Neck Exam: normal inspection, non-tender, supple, full range of motion Respiratory Exam: normal breath sounds, lungs clear, No respiratory distress Cardiovascular Exam: regular rate/rhythm, normal heart sounds Gastrointestinal/Abdomen Exam: soft, normal bowel sounds, No tenderness, No mass Back Exam: normal inspection, normal range of motion, CVA tenderness, No vertebral tenderness, No rash, No decreased range of motion Extremity Exam: normal inspection, normal range of motion, pelvis stable Neurologic Exam: alert, oriented x 3, cooperative, normal mood/affect, nml cerebellar function, sensation nml, No motor deficits Skin Exam: normal color, warm, dry SpO2 Interpretation: normal (99%) SpO2: 99 Oxygen Delivery: Room Air - Course Nursing assessment & vital signs reviewed: Yes Ordered Tests: Active Orders 24 hr Category Date Time Status Clean Catch Urine Specimen STAT Care 09/17/17 19:59 Active IV Insertion STAT Care 09/17/17 20:00 Active CBC Stat Lab 09/17/17 20:20 Completed CMP Stat Lab 09/17/17 20:20 Completed UA Stat Lab 09/17/17 19:59 Completed Urine Triage Profile Stat Lab 09/17/17 19:59 Completed Medication Summary Discontinued Medications Generic Name Dose Route Start Last Admin Trade Name Pranav PRN Reason Stop Dose Admin Sodium Chloride 1,000 mls @ 999 mls/hr 09/17/17 20:03 09/17/17 20:08 Sodium Chloride 0.9% 1000 Ml IV 09/17/17 21:03 999 mls/hr .Q1H1M STA Administration Sodium Chloride Confirm 09/17/17 20:07 Sodium Chloride 0.9% 1000 Ml Administered 09/17/17 20:08 Dose 1,000 mls @ ud .ROUTE .STK-MED ONE Ketorolac Tromethamine 30 mg 09/17/17 20:04 09/17/17 20:08 Toradol 30 Mg Injection IV 09/17/17 20:05 30 mg STAT ONE Administration Ketorolac Tromethamine Confirm 09/17/17 20:07 Toradol 30 Mg Injection Administered 09/17/17 20:08 Dose 30 mg .ROUTE .STK-MED ONE Lab/Rad Data: Laboratory Result Diagrams 09/17/17 20:20 09/17/17 20:20 Laboratory Results 09/17/17 09/17/17 09/17/17 Range/Units 20:20 20:20 19:59 WBC 8.8 (4.0-10.5) K/mm3 RBC 4.88 (4.1-5.6) M/mm3 Hgb 14.2 (12.5-18.0) gm/dl Hct 42.6 (42-50) % MCV 87.3 (78-100) fl MCH 29.1 (26-32) pg MCHC 33.3 (32-36) g/dl RDW 13.2 (11.5-14.0) % Plt Count 253 (150-450) K/mm3 MPV 9.1 (6-9.5) fl Sodium 142 (136-145) mEq/L Potassium 3.9 (3.5-5.1) mEq/L Chloride 107 (98-107) mEq/L Carbon Dioxide 27.2 (21-32) mEq/L Anion Gap 11.7 (5-15) MEQ/L BUN 12 (9-20) mg/dL Creatinine 0.85 (0.55-1.30) mg/dl Estimated GFR > 60 ML/MIN Glucose 101 (70-110) MG/DL Calcium 9.3 (8.5-10.1) mg/dL Total Bilirubin 0.20 (0.2-1.0) mg/dL AST 57 H (15-37) U/L ALT 133 H (12-78) U/L Alkaline Phosphatase 77 (46-116) U/L Serum Total Protein 7.7 (6.4-8.2) gm/dL Albumin 3.9 (3.4-5.0) g/dL Ur Collection Type Urine Color (YELLOW) Urine Appearance (CLEAR) Urine pH (5-6) Ur Specific [place] (1.005-1.025) Urine Protein (Negative) Urine Ketones (NEGATIVE) Urine Blood (0-5) José Miguel/ul Urine Nitrite (NEGATIVE) Urine Bilirubin (NEGATIVE) Urine Urobilinogen (0-1) mg/dL Ur Leukocyte Esterase (NEGATIVE) Urine Glucose (NEGATIVE) mg/dL Urine Opiates Level NEG. (NEGATIVE) Ur Methadone NEG. (NEGATIVE) Urine Barbiturates NEG. (NEGATIVE) Ur Phencyclidine (PCP) NEG. (NEGATIVE) Urine Amphetamine NEG. (NEGATIVE) U Benzodiazepine Level NEG. (NEGATIVE) Urine Cocaine NEG. (NEGATIVE) Urine Marijuana (THC) POS. (NEGATIVE) Specimen Received 09/17/17 Range/Units 19:59 WBC (4.0-10.5) K/mm3 RBC (4.1-5.6) M/mm3 Hgb (12.5-18.0) gm/dl Hct (42-50) % MCV (78-100) fl MCH (26-32) pg MCHC (32-36) g/dl RDW (11.5-14.0) % Plt Count (150-450) K/mm3 MPV (6-9.5) fl Sodium (136-145) mEq/L Potassium (3.5-5.1) mEq/L Chloride (98-107) mEq/L Carbon Dioxide (21-32) mEq/L Anion Gap (5-15) MEQ/L BUN (9-20) mg/dL Creatinine (0.55-1.30) mg/dl Estimated GFR ML/MIN Glucose (70-110) MG/DL Calcium (8.5-10.1) mg/dL Total Bilirubin (0.2-1.0) mg/dL AST (15-37) U/L ALT (12-78) U/L Alkaline Phosphatase (46-116) U/L Serum Total Protein (6.4-8.2) gm/dL Albumin (3.4-5.0) g/dL Ur Collection Type CLEAN CATCH Urine Color YELLOW (YELLOW) Urine Appearance CLOUDY (CLEAR) Urine pH 7.0 (5-6) Ur Specific [place] 1.020 (1.005-1.025) Urine Protein NEGATIVE (Negative) Urine Ketones NEGATIVE (NEGATIVE) Urine Blood NEGATIVE (0-5) José Miguel/ul Urine Nitrite NEGATIVE (NEGATIVE) Urine Bilirubin NEGATIVE (NEGATIVE) Urine Urobilinogen NORMAL (0-1) mg/dL Ur Leukocyte Esterase NEGATIVE (NEGATIVE) Urine Glucose NEGATIVE (NEGATIVE) mg/dL Urine Opiates Level (NEGATIVE) Ur Methadone (NEGATIVE) Urine Barbiturates (NEGATIVE) Ur Phencyclidine (PCP) (NEGATIVE) Urine Amphetamine (NEGATIVE) U Benzodiazepine Level (NEGATIVE) Urine Cocaine (NEGATIVE) Urine Marijuana (THC) (NEGATIVE) Specimen Received [id number] - Progress Progress: improved Progress Note: 09/17/17 21:42 This is a 22-year-old white male who has been told he stones in his kidneys in the past he has been seen last month she had no intraureteral stones. He states today he was having pain in the left flank which was sharp fairly low down is considered to where I would normally see pain secondary to kidney stones. Past medical history includes depression, kidney stones Past surgical history includes negative patient's labs including CBC chemistry UA are all essentially normal with exception of a mild elevation in AST and ALTs there is no blood in the urine Patient is given Toradol 30 mg IV 1 L of normal saline is feeling markedly improved. Patient did turn up with marijuana in his urine drug screen. Will go ahead and discharge patient is advised to take Advil 3 tablets orally 3 times a day with food plenty of fluids follow-up with his family doctor - Departure Time of Disposition: 21:44 Departure Disposition: Home Clinical Impression: Left flank pain Condition: Fair Critical Care Time: No Additional Instructions: Return home. Plenty of fluids. Advil [id number] 3 tablets orally every 6 hours with food as needed for pain for 5 days. Follow-up with your family doctor.(list) Return for acute distress or for severe symptoms
[2017-09-17] MEDS ORDERED: Sodium Chloride 0.9% 1000 ML 1,000 ML IV STA (20:03)
[2017-09-17] MEDS ORDERED: TORAdol 30 mg Injection IV ONE (20:04)
[2017-09-17] MEDS ORDERED: Sodium Chloride 0.9% 1000 ML 1,000 ML ONE (20:07)
[2017-09-17] MEDS ORDERED: TORAdol 30 mg Injection ONE (20:07)
[2017-09-17 20:27] LABS: Mean Cell Volume 87.3 fl (78-100); Mean Corpuscular Hemoglobin 29.1 pg (26-32); Mean Platelet Volume 9.1 fl (6-9.5); Platelet Count 253 K/mm3 (150-450); Red Blood Count 4.88 M/mm3 (4.1-5.6); Red Cell Distribution Width 13.2 % (11.5-14.0); White Blood Count 8.8 K/mm3 (4.0-10.5)
[2017-09-17 20:42] LABS: Bilirubin NEGATIVE (NEGATIVE); Blood NEGATIVE Ery/ul (0-5); COMPLETE URINE MICROSCOPIC? NO; Collection Type CLEAN CATCH; Glucose NEGATIVE (NEGATIVE); Leukocyte Esterase NEGATIVE (NEGATIVE)
[2017-09-17 20:54] LABS: ALBUMIN 3.9 g/dL (3.4-5.0); ALKALINE PHOSPHATASE 77 U/L (46-116); ANION GAP 11.7 MEQ/L (5-15); BLOOD UREA NITROGEN 12 mg/dL (9-20); CHLORIDE 107 mEq/L (98-107); Carbon Dioxide 27.2 mEq/L (21-32); Glucose 101 MG/DL (70-110); Potassium 3.9 mEq/L (3.5-5.1); SGOT/AST 57 U/L (15-37); SGPT/ALT 133 U/L (12-78); SODIUM 142 mEq/L (136-145); Total Protein 7.7 gm/dL (6.4-8.2)
[2017-09-17 21:19] VITALS: BP 115/61; PULSE 66
[2017-09-17 21:46] VITALS: O2SAT 99
== END 2017-09-17 21:59 | disposition home or self-care (01) ==
LOC: ED 18:37
DX: R10.9 Unspecified abdominal pain (principal)
CPT/HCPCS: 36000; 36415; 80053; 80307; 81002; 85027; 96360; 96374; 99284; J1885

== ENCOUNTER 2017-12-17 18:45 | Emergency (ER) | payer OTHER ==
[2017-12-17] MEDS ORDERED: MOTRIN 600 MG PO ONE (19:41)
--- NOTE | 2017-12-17 19:42 | ERPHSYRPT ---
- History of Present Illness Time Seen by Provider: 12/17/17 19:30 Source: patient Exam Limitations: clinical condition Patient Subjective Stated Complaint: pt states he rolled his rt ankle while moving stuff at approx 1400 today Triage Nursing Assessment: pt alert and oriented, answers questions approp. respirations nonlabored with lungs cta. pt transfers from wheelchair to stretcher per self, nwb to rt leg. mild swelling and tenderness noted to rt ankle. cap refill and pedal pulse wnl. Physician History: PATIENT COMPLAINS OF PAIN IN HIS RIGHT FOOT AND ANKLE WHILE MOVING FURNITURE. HAS SEVERE PAIN UPON WEIGHT BEARING. Method of Injury: twisted Occurred: this afternoon Quality: constant Severity of Pain-Max: moderate Severity of Pain-Current: moderate Lower Extremities Pain: foot: right, ankle: right Modifying Factors: Improves With: movement Associated Symptoms: unable to bear weight Allergies/Adverse Reactions: No Known Drug Allergies Allergy (Verified 07/31/17 14:22) Home Medications: No Home Meds [No Home Meds] 1 ea BEATRIZ NAVA 04/19/16 [History] Hx Tetanus, Diphtheria Vaccination/Date Given: Yes Hx Influenza Vaccination/Date Given: No Hx Pneumococcal Vaccination/Date Given: No Immunizations Up to Date: Yes - Review of Systems Constitutional: No Symptoms Musculoskeletal: Injury, Joint Pain, Joint Swelling Psychological: No Symptoms Endocrine: No Symptoms Immunological/Allergic: No Symptoms - Past Medical History Pertinent Past Medical History: Yes Neurological History: No Pertinent History ENT History: No Pertinent History Cardiac History: No Pertinent History Respiratory History: Asthma Endocrine Medical History: No Pertinent History Musculoskeletal History: No Pertinent History GI Medical History: No Pertinent History History: No Pertinent History Psycho-Social History: Depression Male Reproductive Disorders: No Pertinent History Other Medical History: Childhood asthma,kidney stones - Past Surgical History Past Surgical History: No Neuro Surgical History: No Pertinent History Cardiac: No Pertinent History Respiratory: No Pertinent History Gastrointestinal: No Pertinent History Genitourinary: No Pertinent History Musculoskeletal: No Pertinent History Male Surgical History: No Pertinent History Other Surgical History: DENIES SURGERY - Social History Smoking Status: Current every day smoker How long have you smoked: 10 Exposure to second hand smoke: No Drug Use: none Patient Lives Alone: No - Nursing Vital Signs Nursing Vital Signs: Initial Vital Signs Temperature 97.8 F 12/17/17 19:23 Pulse Rate 68 12/17/17 19:23 Respiratory Rate 18 12/17/17 19:23 Blood Pressure 135/71 12/17/17 19:23 O2 Sat by Pulse Oximetry 98 12/17/17 19:23 Pain Scale Pain Intensity 10 - Physical Exam General Appearance: no apparent distress Ankle Exam: right ankle: limited range of motion, soft tissue tenderness (OVER THE LATERAL MALLEOLUS, MODERATE TENDERNESS, NO JOINT LAXITY UPON VARUS VALGUS STRESS, NO DEFORMITY OR ECCHYMOSIS) Foot Exam: right foot: normal inspection, pain (OVER THE MID TO DISTAL 1ST TO 5TH METATARSALS, PEDIS PULSE 2+), soft tissue tenderness DTR - Lower Extremities Exam: knee (R): 2+, knee (L): 2+, ankle (R): 2+, ankle ( L): 2+ Neuro/Tendon Exam: normal sensation, normal motor functions Mental Status Exam: alert, oriented x 3, cooperative Skin Exam: normal color SpO2 Interpretation: normal SpO2: 98 Oxygen Delivery: Room Air - Radiology Exams Right Ankle X-ray Interpretation: Interpreted by me, Negative, No Fracture Right Foot X-ray Interpretation: Interpreted by me, Negative, No Fracture, Other Ordered Tests: Active Orders 24 hr Category Date Time Status Crutches STAT Care 12/17/17 19:40 Active Splint STAT Care 12/17/17 20:10 Active ANKLE (3 VIEWS) Stat Exams 12/17/17 19:40 Taken FOOT (MINIMUM 3 VIEWS) Stat Exams 12/17/17 19:39 Taken Medication Summary Generic Name Dose Route Start Last Admin Trade Name Freq PRN Reason Stop Dose Admin Acetaminophen/Codeine Phosphate 2 tab 12/17/17 20:26 Tylenol #3 Tablet PO 12/17/17 20:27 SENT HOME W/ PATIENT ONE Discontinued Medications Generic Name Dose Route Start Last Admin Trade Name Freq PRN Reason Stop Dose Admin Ibuprofen 600 mg 12/17/17 19:41 Motrin 600 Mg PO 12/17/17 19:42 STAT ONE - Progress Progress Note: 12/17/17 20:14 ADMINISTERED MOTRIN 600MG ORALLY, GIVEN ANKLE VELCRO SPLINT AND CRUTCHES Counseled pt/family regarding: diagnosis, need for follow-up, rad results - Departure Time of Disposition: 20:20 Departure Disposition: Home Clinical Impression: RIGHT ANKLE STRAIN, RIGHT FOOT STRAIN Condition: Stable Critical Care Time: No Referrals: DOCTOR,NO FAMILY [Primary Care Provider] - Additional Instructions: AMBULATE USING CRUTCHES NONWEIGHT BEARING RIGHT FOOT FOR 5 DAYS. WEAR VELCRO ANKLE SPLINT FOR COMFORT, REMOVE SPLINT AND APPLY ICE OVER FOOT AND ANKLE SWELLING EVERY 4 HOURS, 30 MINUTES FOR 48 HOURS. MOTRIN 600MG EVERY 6 HOURS FOR PAIN. TYLENOL #3 EVERY 4 HOURS FOR SEVERE PAIN. CONSULT YOUR PRIMARY CARE PROVIDER TOMORROW TO SCHEDULE APPOINTMENT. Prescriptions: Codeine Phosphate/APAP #3 [Tylenol #3 Tablet] 1 tab PO Q4H PRN PRN #6 tablet PRN Reason: Pain Ibuprofen 600 mg PO Q6HPRN PRN #20 tablet PRN Reason: Pain
[2017-12-17] MEDS ORDERED: Tylenol #3 Tablet PO ONE (20:26)
[2017-12-17] MEDS ORDERED: MOTRIN 600 MG ONE (20:45)
[2017-12-17] MEDS ORDERED: Tylenol #3 Tablet ONE (20:45)
[2017-12-17 21:09] VITALS: BP 125/76; PULSE 83; O2SAT 100
--- NOTE | 2017-12-18 08:34 | XRAY ---
Indication: Pain following injury. Comparison: None 3 views of the right ankle obtained. No bony, articular, or soft tissue abnormalities.
--- NOTE | 2017-12-18 08:36 | XRAY ---
Indication: Pain following injury. Comparison: None 3 nonweightbearing views of the right foot demonstrates tiny cuboid accessory ossicle. No other bony, articular, or soft tissue abnormalities.
== END 2017-12-17 21:10 | disposition home or self-care (01) ==
LOC: ED 18:45
DX: S96.911A Strain of unspecified muscle and tendon at ankle and foot level, right foot, initial encounter (principal); X50.1XXA Overexertion from prolonged static or awkward postures, initial encounter; Y93.89 Activity, other specified
CPT/HCPCS: 73610; 73630; 99282; 99283; A9270-GY

== ENCOUNTER 2018-02-26 02:11 | Emergency (ER) | payer OTHER ==
[2018-02-26 02:27] VITALS: BP 123/68; PULSE 69; O2SAT 98
[2018-02-26] MEDS ORDERED: Rocephin 1000 MG INJ ONE (02:39)
[2018-02-26] MEDS: Rocephin 1000 MG INJ IM ONE (02:42)
--- NOTE | 2018-02-26 02:42 | ERPHSYRPT ---
- History of Present Illness Time Seen by Provider: 02/26/18 02:31 Source: patient Exam Limitations: no limitations Patient Subjective Stated Complaint: right side jaw swollen Triage Nursing Assessment: Pt A&O x3, right side of jaw/cheek is swollen, denies pain, stated that it began yesterday morning that has continued to get bigger, no wounds, vitals wnl, afebrile, doesn't appear to be in any distress Physician History: 22-year-old white male arrives with complaint of swelling right mandibular region symptoms since yesterday. He denies overt dental pain, he denies any trauma. Past medical history includes childhood asthma, depression, kidney stones. past surgical history negative. Timing/Duration: yesterday Severity: moderate Modifying Factors: Improves With: nothing Associated Symptoms: No nausea, No vomiting, No abdominal pain, No shortness of breath, No heartburn, No diaphoresis, No cough, No chills, No chest pain, No fever, No headaches, No loss of appetite, No malaise, No rash, No syncope, No seizure, No weakness Allergies/Adverse Reactions: No Known Drug Allergies Allergy (Verified 02/26/18 02:27) Hx Tetanus, Diphtheria Vaccination/Date Given: Yes Hx Influenza Vaccination/Date Given: No Hx Pneumococcal Vaccination/Date Given: No - Review of Systems Constitutional: No Fever, No Chills Eyes: No Symptoms Ears, Nose, & Throat: Mouth Swelling, No Ear Pain, No Ear Discharge, No Hearing Changes, No Tinnitus, No Nose Pain, No Nose Congestion, No Nose Discharge, No Sinus Drainage, No Epistaxis, No Mouth Pain, No Loose Teeth, No Throat Pain, No Throat Swelling, No Hoarse, No Painful Swallowing, No Snoring, No Stridor Respiratory: No Cough, No Dyspnea Cardiac: No Chest Pain, No Edema, No Syncope Abdominal/Gastrointestinal: No Abdominal Pain, No Nausea, No Vomiting, No Diarrhea Genitourinary Symptoms: No Dysuria Musculoskeletal: No Back Pain, No Neck Pain Skin: No Rash Neurological: No Dizziness, No Focal Weakness, No Sensory Changes Psychological: No Symptoms Endocrine: No Symptoms All Other Systems: Reviewed and Negative - Past Medical History Pertinent Past Medical History: Yes Neurological History: No Pertinent History ENT History: No Pertinent History Cardiac History: No Pertinent History Respiratory History: Asthma Endocrine Medical History: No Pertinent History Musculoskeletal History: No Pertinent History GI Medical History: No Pertinent History History: No Pertinent History Psycho-Social History: Depression Male Reproductive Disorders: No Pertinent History Other Medical History: Childhood asthma,kidney stones - Past Surgical History Past Surgical History: No Neuro Surgical History: No Pertinent History Cardiac: No Pertinent History Respiratory: No Pertinent History Gastrointestinal: No Pertinent History Genitourinary: No Pertinent History Musculoskeletal: No Pertinent History Male Surgical History: No Pertinent History Other Surgical History: DENIES SURGERY - Social History Smoking Status: Current every day smoker How long have you smoked: 10 Exposure to second hand smoke: No Drug Use: none Patient Lives Alone: No - Nursing Vital Signs Nursing Vital Signs: Initial Vital Signs Temperature 97.5 F 02/26/18 02:19 Pulse Rate 69 02/26/18 02:19 Blood Pressure 123/68 02/26/18 02:19 O2 Sat by Pulse Oximetry 98 02/26/18 02:19 Pain Scale Pain Intensity 0 - Physical Exam General Appearance: no apparent distress, alert, other (well-developed well- nourished white male, alert oriented 3, pleasant and cooperative to examination ) Eye Exam: PERRL/EOMI, eyes nml inspection Ears, Nose, Throat Exam: normal ENT inspection, TMs normal, pharynx normal, moist mucous membranes, other ( dental caries right lateral mandibular area, With edema right lateral mandible adjacent to this.) Neck Exam: normal inspection, non-tender, supple, full range of motion Respiratory Exam: normal breath sounds, lungs clear, No respiratory distress Cardiovascular Exam: regular rate/rhythm, normal heart sounds, normal peripheral pulses Gastrointestinal/Abdomen Exam: soft, normal bowel sounds, No tenderness, No mass Back Exam: normal inspection, normal range of motion, No CVA tenderness, No vertebral tenderness Extremity Exam: normal inspection, normal range of motion, pelvis stable Neurologic Exam: alert, oriented x 3, cooperative, normal mood/affect, nml cerebellar function, nml station & gait, sensation nml, No motor deficits Skin Exam: normal color, warm, dry, No rash SpO2 Interpretation: normal (98%) SpO2: 98 Oxygen Delivery: Room Air - Course Nursing assessment & vital signs reviewed: Yes - Progress Progress Note: 02/26/18 02:39 This is a 22-year-old white male with complaint of right jaw swelling since yesterday he denies any injury he does have a tooth in the right mandibular area corresponding to the swelling there is mild tenderness over the swelling. Will go ahead and give patient Rocephin 1 g IM plan home on clindamycin 300 mg orally 3 times a day for 10 days, cold packs to area 24-48 hours, Advil every 6 hours as needed, follow-up with dentist. - Departure Time of Disposition: 02:41 Departure Disposition: Home Clinical Impression: Dental abscess Condition: Fair Critical Care Time: No Referrals: DOCTOR,NO FAMILY [Primary Care Provider] - Additional Instructions: Return home, cold packs to area 24-48 hours, clindamycin as prescribed advil every 6 hours as needed for pain. follow up with your dentist. Return for acute distress or for severe symptoms. Prescriptions: Clindamycin HCl 300 mg PO TID #30 capsule
== END 2018-02-26 02:50 | disposition home or self-care (01) ==
LOC: ED 02:11
DX: K04.7 Periapical abscess without sinus (principal); R22.0 Localized swelling, mass and lump, head
CPT/HCPCS: 96372; 99283; J0696

== ENCOUNTER 2018-03-12 17:30 | Emergency (ER) | payer OTHER ==
[2018-03-12 17:47] VITALS: BP 155/78; PULSE 103; O2SAT 98
[2018-03-12] MEDS ORDERED: TORAdol 30 mg Injection IM ONE (17:54)
[2018-03-12] MEDS ORDERED: Rocephin 1000 MG INJ IM ONE (17:54)
[2018-03-12] MEDS ORDERED: Rocephin 1000 MG INJ ONE (17:58)
[2018-03-12] MEDS ORDERED: TORAdol 30 mg Injection ONE (17:58)
[2018-03-12] MEDS ORDERED: XYLOCAINE 1% HCL 20 ML MDV ONE (17:58)
--- NOTE | 2018-03-12 18:01 | ERPHSYRPT ---
- History of Present Illness Time Seen by Provider: 03/12/18 17:51 Source: patient Exam Limitations: no limitations Patient Subjective Stated Complaint: MOUTH AND JAW PAIN FOR ONE WEEK Triage Nursing Assessment: RIGHT SIDE OF JAW SWOLLEN, TENDER TO TOUCH. DENIES FEVER. Physician History: 22-year-old white male arrives with complaint of dental pain right mandibular region symptoms for one week. Patient states he has had swelling in the area. Patient was seen on the February 26, 2018 for the same he was placed on clindamycin. He has not followed up with a dentist. Past medical history includes depression, childhood asthma, kidney stones. Past surgical history is negative Timing/Duration: week(s) (one week) Severity: moderate Modifying Factors: Improves With: nothing Associated Symptoms: No nausea, No vomiting, No abdominal pain, No shortness of breath, No heartburn, No diaphoresis, No cough, No chills, No chest pain, No fever, No headaches, No loss of appetite, No malaise, No rash, No syncope, No seizure, No weakness Allergies/Adverse Reactions: No Known Drug Allergies Allergy (Verified 03/12/18 17:40) Hx Tetanus, Diphtheria Vaccination/Date Given: Yes Hx Influenza Vaccination/Date Given: No Hx Pneumococcal Vaccination/Date Given: No - Review of Systems Constitutional: No Fever, No Chills Eyes: No Symptoms Ears, Nose, & Throat: Mouth Pain, Mouth Swelling, No Ear Pain, No Ear Discharge , No Hearing Changes, No Tinnitus, No Nose Pain, No Nose Congestion, No Nose Discharge, No Sinus Drainage, No Epistaxis, No Loose Teeth, No Throat Pain, No Throat Swelling, No Hoarse, No Painful Swallowing, No Snoring, No Stridor Respiratory: No Cough, No Dyspnea Cardiac: No Symptoms Abdominal/Gastrointestinal: No Abdominal Pain, No Nausea, No Vomiting, No Diarrhea Genitourinary Symptoms: No Dysuria Musculoskeletal: No Back Pain, No Neck Pain Skin: No Rash Neurological: No Dizziness, No Focal Weakness, No Sensory Changes Psychological: No Symptoms Endocrine: No Symptoms All Other Systems: Reviewed and Negative - Past Medical History Pertinent Past Medical History: Yes Neurological History: No Pertinent History ENT History: No Pertinent History Cardiac History: No Pertinent History Respiratory History: Asthma Endocrine Medical History: No Pertinent History Musculoskeletal History: No Pertinent History GI Medical History: No Pertinent History History: No Pertinent History Psycho-Social History: Depression Male Reproductive Disorders: No Pertinent History Other Medical History: Childhood asthma,kidney stones - Past Surgical History Past Surgical History: No Neuro Surgical History: No Pertinent History Cardiac: No Pertinent History Respiratory: No Pertinent History Gastrointestinal: No Pertinent History Genitourinary: No Pertinent History Musculoskeletal: No Pertinent History Male Surgical History: No Pertinent History Other Surgical History: DENIES SURGERY - Social History Smoking Status: Current every day smoker How long have you smoked: 9 Exposure to second hand smoke: No Drug Use: none Patient Lives Alone: No - Nursing Vital Signs Nursing Vital Signs: Initial Vital Signs Temperature 97.9 F 03/12/18 17:35 Pulse Rate 103 H 03/12/18 17:35 Respiratory Rate 16 03/12/18 17:35 Blood Pressure 155/78 03/12/18 17:35 O2 Sat by Pulse Oximetry 98 03/12/18 17:35 Pain Scale Pain Intensity 6 - Physical Exam General Appearance: moderate distress Eye Exam: PERRL/EOMI, eyes nml inspection Ears, Nose, Throat Exam: TMs normal, pharynx normal, moist mucous membranes, other (ppatient with dental caries right lateral mandibular region patient with swelling right lateral mandibular region adjacent to dental caries) Neck Exam: normal inspection, non-tender, supple, full range of motion Respiratory Exam: normal breath sounds, lungs clear, No respiratory distress Cardiovascular Exam: regular rate/rhythm, normal heart sounds, normal peripheral pulses Gastrointestinal/Abdomen Exam: soft, normal bowel sounds, No tenderness, No mass Back Exam: normal inspection, normal range of motion, No CVA tenderness, No vertebral tenderness Extremity Exam: normal inspection, normal range of motion, pelvis stable Neurologic Exam: alert, oriented x 3, cooperative, normal mood/affect, nml cerebellar function, nml station & gait, sensation nml, No motor deficits Skin Exam: normal color, warm, dry, No rash Lymphatic Exam: No adenopathy SpO2 Interpretation: normal (98%) SpO2: 98 Oxygen Delivery: Room Air - Course Nursing assessment & vital signs reviewed: Yes Ordered Tests: Medication Summary Generic Name Dose Route Start Last Admin Trade Name Freq PRN Reason Stop Dose Admin Ceftriaxone Sodium 1,000 mg 03/12/18 17:54 Rocephin 1000 Mg Inj IM 03/12/18 17:55 STAT ONE Ketorolac Tromethamine 60 mg 03/12/18 17:54 Toradol 30 Mg Injection IM 03/12/18 17:55 STAT ONE - Progress Progress: improved Progress Note: 03/12/18 17:58 This is a 22-year-old white male arrives with complaint of one week of swelling in his right mandibular region also dental pain. He was seen on February 26, 2018 with complaint of swelling of the right mandibular region. He was given clindamycin he states he has not followed up with his dentist. Today he is having pain in the area. Will go ahead and give patient Rocephin 1 g IM plan on amoxicillin 500 mg orally 3 times a day for 10 days [place] for pain. Patient will need to follow-up with a dentist. - Departure Time of Disposition: 17:59 Departure Disposition: Home Clinical Impression: Pain, dental, Dental caries, Dental abscess Condition: Fair Critical Care Time: No Referrals: DOCTOR,NO FAMILY [Primary Care Provider] - Additional Instructions: Return home. Cold packs to area (external) 24-48 hours. Avoid excessively hot or cold foods. Amoxicillin 500 mg orally 3 times a day for 10 days. [place] 5/325 one orally every 4-6 hours as needed for pain. May also take Advil [id number] 2-3 tablets orally every 6 hours as needed for pain for 5 days. Follow-up with a dentist it important that you follow-up with the dentist. Return for acute distress or for severe symptoms. Prescriptions: Amoxicillin 500 mg PO TID #30 capsule Hydrocodone/Acetaminophen [[place] 5-325 Tablet] 1 tab PO Q4-6HPRN PRN #12 tablet MDD 6 tablets PRN Reason: Pain
== END 2018-03-12 18:25 | disposition home or self-care (01) ==
LOC: ED 17:30
DX: K02.9 Dental caries, unspecified (principal); K04.7 Periapical abscess without sinus
CPT/HCPCS: 96372; 99283; J0696; J1885

== ENCOUNTER 2018-06-17 22:12 | Emergency (ER) | payer SELFPAY ==
[2018-06-17 22:23] VITALS: PULSE 118
--- NOTE | 2018-06-17 22:37 | ERPHSYRPT ---
- History of Present Illness Time Seen by Provider: 06/17/18 22:25 Source: patient, family Exam Limitations: no limitations Patient Subjective Stated Complaint: pt is alert and oriented. pt is ambulatory. pt states that he was skateboarding and fell off his skateboard onto the road landing on his left elbow. pt denies hitting his head or loss of consciousness. pt has some scrapes on his left sholder and left side of his mid back. pt states that the pain located in his entire left arm and mostly in the backside of his elbow. pt states that he "can't lift his arm". no sensation loss and able to move hands and fingers. radial pulse present and strong. Triage Nursing Assessment: see above Physician History: 23 y/o right handed white male presents approx 3 hours after pt fell onto left elbow. pt states he fell while riding a skateboard. he did not hit his head. pt rolled a bit and suffered abrasions to left shoulder. he can move the left elbow but it hurts to do so. pts tetanus status utd. Occurred: this evening Method of Injury: fell Severity of Pain-Max: moderate Severity of Pain-Current: moderate Extremities Pain Location: arm: left, elbow: left, forearm: left Modifying Factors: Improves With: movement Allergies/Adverse Reactions: No Known Drug Allergies Allergy (Verified 03/12/18 17:40) Hx Tetanus, Diphtheria Vaccination/Date Given: Yes Hx Influenza Vaccination/Date Given: No Hx Pneumococcal Vaccination/Date Given: No Immunizations Up to Date: Yes - Review of Systems Constitutional: No Symptoms, No Fever Eyes: No Symptoms, No Eye Pain Ears, Nose, & Throat: No Symptoms, No Ear Pain Respiratory: No Symptoms, No Cough, No Dyspnea, No Stridor, No Wheezing Cardiac: No Symptoms, No Chest Pain Abdominal/Gastrointestinal: No Symptoms, No Abdominal Pain, No Nausea, No Vomiting, No Diarrhea Genitourinary Symptoms: No Symptoms, No Dysuria, No Frequency, No Hematuria Musculoskeletal: Fall, Injury (left elbow and arm), Joint Swelling Skin: No Symptoms Neurological: No Symptoms Psychological: No Symptoms Endocrine: No Symptoms Hematologic/Lymphatic: No Symptoms Immunological/Allergic: No Symptoms All Other Systems: Reviewed and Negative - Past Medical History Pertinent Past Medical History: Yes Neurological History: No Pertinent History ENT History: No Pertinent History Cardiac History: No Pertinent History Respiratory History: Asthma Endocrine Medical History: No Pertinent History Musculoskeletal History: No Pertinent History GI Medical History: No Pertinent History History: No Pertinent History Psycho-Social History: No Pertinent History Male Reproductive Disorders: No Pertinent History Other Medical History: Childhood asthma,kidney stones - Past Surgical History Past Surgical History: No Neuro Surgical History: No Pertinent History Cardiac: No Pertinent History Respiratory: No Pertinent History Gastrointestinal: No Pertinent History Genitourinary: No Pertinent History Musculoskeletal: No Pertinent History Male Surgical History: No Pertinent History Other Surgical History: DENIES SURGERY - Social History Smoking Status: Current every day smoker How long have you smoked: 7 years Exposure to second hand smoke: No Drug Use: none Patient Lives Alone: No - Nursing Vital Signs Nursing Vital Signs: Initial Vital Signs Temperature 98.9 F 06/17/18 22:12 Pulse Rate 118 H 06/17/18 22:12 Respiratory Rate 16 06/17/18 22:12 Blood Pressure 125/100 06/17/18 22:12 O2 Sat by Pulse Oximetry 99 06/17/18 22:12 Pain Scale Pain Intensity 9 - Physical Exam General Appearance: no apparent distress, alert, anxiety Eyes, Ears, Nose, Throat Exam: normal ENT inspection, TMs normal Neck Exam: normal inspection, non-tender, supple, full range of motion Cardiovascular/Respiratory Exam: chest non-tender, no respiratory distress, No rib tenderness Abdominal Exam: non-tender, No tenderness Back Exam: normal inspection, normal range of motion Shoulder Exam: normal ROM, soft tissue tenderness (abrasion) Elbow/Forearm Exam: bone tenderness, limited ROM, pain, soft tissue tenderness, swelling Wrist Exam: normal inspection, non-tender, no evidence of injury, normal ROM Hand Exam: normal inspection, non-tender, no evidence of injury, normal ROM, abrasions Neuro/Tendon Exam: normal sensation, normal motor functions, normal tendon functions, no evidence tendon injury, No motor deficit, No sensory deficit Mental Status Exam: alert, oriented x 3, cooperative, agitated Skin Exam: normal color, warm, abrasion (left shoulder) SpO2 Interpretation: normal SpO2: 99 Oxygen Delivery: Room Air - Course Nursing assessment & vital signs reviewed: Yes Ordered Tests: Active Orders 24 hr Category Date Time Status Sling Application STAT Care 06/17/18 23:43 Active Splint STAT Care 06/17/18 23:43 Active ELBOW (MINIMUM 3 VIEWS) Stat Exams 06/17/18 22:39 Taken FOREARM Stat Exams 06/17/18 22:40 Taken HUMERUS Stat Exams 06/17/18 22:40 Taken Medication Summary Discontinued Medications Generic Name Dose Route Start Last Admin Trade Name Treq PRN Reason Stop Dose Admin Hydrocodone Bitart/Acetaminophen 1 tab 06/17/18 23:44 [place] 10/325 Mg Tablet PO 06/17/18 23:45 STAT ONE Ibuprofen 600 mg 06/17/18 23:03 06/17/18 23:06 Motrin 600 Mg PO 06/17/18 23:04 600 mg STAT ONE Administration Ibuprofen Confirm 06/17/18 23:04 Motrin 600 Mg Administered 06/17/18 23:05 Dose 600 mg .ROUTE .STK-MED ONE Lab/Rad Data: xray left humerus-negative xray left forearm-radial head cortical irregularity likely a nondisplace radial head/neck fx xray left elbow-small joint effusion - Progress Progress: improved Progress Note: 06/17/18 22:38 pt does not want us to clean left shoulder abrasion or apply antibx ointment to it Counseled pt/family regarding: diagnosis, need for follow-up, rad results - Departure Time of Disposition: 23:45 Departure Disposition: Home Clinical Impression: Elbow fracture, Abrasion Condition: Stable Critical Care Time: No Referrals: DOCTOR,NO FAMILY [Primary Care Provider] - Additional Instructions: keep abrasion sites clean with soap and water daily followed by antibiotic ointment. wear splint and sling for comfort. follow up with orthopedic surgeon of choice tomorrow for further management. call primary doctor tomorrow if you cannot arrange an orthopedic evaluation this week. follow xray recommended by radiologist to be ordered by orthopedic surgeon or primary doctor if indicated in 10 days. add ibuprofen for pain Prescriptions: Hydrocodone/APAP 5/325 [[place] 5/325 mg] 1 each PO Q6H PRN PRN #10 tablet MDD 4 PRN Reason: Pain
[2018-06-17] MEDS ORDERED: MOTRIN 600 MG PO ONE (23:03)
[2018-06-17] MEDS ORDERED: MOTRIN 600 MG ONE (23:04)
[2018-06-17] MEDS ORDERED: Norco 10/325 MG Tablet PO ONE (23:44)
[2018-06-17] MEDS ORDERED: Norco 10/325 MG Tablet ONE (23:46)
[2018-06-17 23:52] VITALS: BP 112/67
[2018-06-17 23:53] VITALS: O2SAT 99
--- NOTE | 2018-06-18 08:41 | XRAY ---
Indication: Pain following skateboarding injury. Comparison: None. 3 views of the left elbow demonstrates nondepressed radial head fracture best seen on oblique view with effusion. No other bony, articular, or soft tissue abnormalities. Comment: Preliminary interpretation was made by [facility]. No critical discrepancy.
--- NOTE | 2018-06-18 08:43 | XRAY ---
Indication: Pain following skateboarding injury. Comparison: None. 2 views of the left humerus obtained. No bony, articular, or soft tissue abnormalities. Elbow reported separately. Comment: Preliminary interpretation was made by [facility]. No critical discrepancy.
--- NOTE | 2018-06-18 08:43 | XRAY ---
Indication: Pain following skateboarding injury. Comparison: None. 2 views of the left forearm demonstrates minimally depressed radial head fracture. No other bony, articular, or soft tissue abnormalities. Comment: Preliminary interpretation was made by [facility]. No critical discrepancy.
== END 2018-06-18 00:06 | disposition home or self-care (01) ==
LOC: ED 22:12
DX: S52.125A Nondisplaced fracture of head of left radius, initial encounter for closed fracture (principal); S40.212A Abrasion of left shoulder, initial encounter; M25.422 Effusion, left elbow; V00.131A Fall from skateboard, initial encounter; Y93.51 Activity, roller skating (inline) and skateboarding; Y92.488 Other paved roadways as the place of occurrence of the external cause
CPT/HCPCS: 29105; 73060; 73080; 73090; 99284; A9270-GY

== ENCOUNTER 2018-06-24 19:59 | Emergency (ER) | payer OTHER ==
--- NOTE | 2018-06-24 20:32 | ERPHSYRPT ---
- History of Present Illness Time Seen by Provider: 06/24/18 20:22 Source: patient Exam Limitations: no limitations Patient Subjective Stated Complaint: pt states he was in the er approx 1-2 weeks ago and was told that he had fractures in his lt arm. states he has been unable to follow up with pmd or ortho Triage Nursing Assessment: pt alert and oriented, asnwers questions approp. pt ambulatoryw ith steady gait noted. respriations nonlabored. sling and shalonda to lt arm. no splint on arrival. tenderness noted to lt elbow area. no bruising at this time. Physician History: 23-year-old white male arrives with complaint of left elbow pain. According the patient he fell one week ago while skateboarding. He was noted in this emergency room to have a radial head fracture. He apparently had a splint placed however he states his splint has broken apart. He continues to have pain in his left elbow. He has not followed up with her family doctor or an orthopedist. Past medical history includes asthma, kidney stones, depression. Past surgical history is negative. Social history positive for tobacco denies illicit drug or alcohol use Occurred: other (one week ago) Method of Injury: fell (fell while skateboarding) Quality: constant, aching Severity of Pain-Max: moderate Severity of Pain-Current: mild Extremities Pain Location: elbow: left Modifying Factors: Improves With: movement. Worsens With: nothing Associated Symptoms: none Allergies/Adverse Reactions: No Known Drug Allergies Allergy (Verified 06/24/18 20:19) Home Medications: No Reportable Medications [No Reported Medications] 06/24/18 [History] Hx Tetanus, Diphtheria Vaccination/Date Given: Yes Hx Influenza Vaccination/Date Given: No Hx Pneumococcal Vaccination/Date Given: No Immunizations Up to Date: Yes - Review of Systems Constitutional: No Fever, No Chills Eyes: No Symptoms Ears, Nose, & Throat: No Symptoms Respiratory: No Cough, No Dyspnea Cardiac: No Chest Pain, No Edema, No Syncope Abdominal/Gastrointestinal: No Abdominal Pain, No Nausea, No Vomiting, No Diarrhea Genitourinary Symptoms: No Dysuria Musculoskeletal: Other (left elbow pain.) Skin: No Rash Neurological: No Dizziness, No Focal Weakness, No Sensory Changes Psychological: No Symptoms Endocrine: No Symptoms All Other Systems: Reviewed and Negative - Past Medical History Pertinent Past Medical History: Yes Neurological History: No Pertinent History ENT History: No Pertinent History Cardiac History: No Pertinent History Respiratory History: Asthma Endocrine Medical History: No Pertinent History Musculoskeletal History: No Pertinent History GI Medical History: No Pertinent History History: No Pertinent History Psycho-Social History: No Pertinent History Male Reproductive Disorders: No Pertinent History Other Medical History: Childhood asthma,kidney stones - Past Surgical History Past Surgical History: No Neuro Surgical History: No Pertinent History Cardiac: No Pertinent History Respiratory: No Pertinent History Gastrointestinal: No Pertinent History Genitourinary: No Pertinent History Musculoskeletal: No Pertinent History Male Surgical History: No Pertinent History Other Surgical History: DENIES SURGERY - Social History Smoking Status: Current every day smoker How long have you smoked: 7 years Exposure to second hand smoke: No Drug Use: none Patient Lives Alone: No - Nursing Vital Signs Nursing Vital Signs: Initial Vital Signs Temperature 98.9 F 06/24/18 20:08 Pulse Rate 59 L 06/24/18 20:08 Respiratory Rate 16 06/24/18 20:08 Blood Pressure 123/81 06/24/18 20:08 O2 Sat by Pulse Oximetry 98 06/24/18 20:08 Pain Scale Pain Intensity 5 - Physical Exam General Appearance: alert Eyes, Ears, Nose, Throat Exam: moist mucous membranes Neck Exam: non-tender, supple Cardiovascular/Respiratory Exam: chest non-tender, normal breath sounds, regular rate/rhythm, no respiratory distress Abdominal Exam: non-tender, No guarding Back Exam: normal inspection, No vertebral tenderness Shoulder Exam: normal inspection, non-tender, no evidence of injury, normal ROM Elbow/Forearm Exam: pain (pain with palpation left lateral elbow, decreased range of motion left lateral elbow) Wrist Exam: normal inspection, no evidence of injury, normal ROM Hand Exam: normal inspection, non-tender, no evidence of injury, normal ROM Neuro/Tendon Exam: normal sensation, normal motor functions Mental Status Exam: alert, oriented x 3, cooperative Skin Exam: normal color, warm, dry SpO2 Interpretation: normal (98%) SpO2: 98 Oxygen Delivery: Room Air - Course Nursing assessment & vital signs reviewed: Yes - Radiology Exams Left Elbow X-ray Interpretation: Interpreted by me (non displaced fracture left radial head ) Ordered Tests: Active Orders 24 hr Category Date Time Status Splint STAT Care 06/24/18 20:57 Active ELBOW (MINIMUM 3 VIEWS) Stat Exams 06/24/18 20:27 Taken - Progress Progress: improved Progress Note: 06/24/18 21:02 23-year-old white male arrives with complaint of pain in his left elbow symptoms for one week patient apparently fell one week ago while skateboarding he had a radial head fracture of the left elbow patient apparently was initially fitted with a splint he was given a sling. He was instructed to follow-up with his family doctor or an orthopedist but he has not done this. He states he is having pain in the left elbow he has decreased range of motion in the left elbow secondary to pain. X-ray of the left elbow is remarkable for a nondisplaced radial head fracture .. Will go ahead and have nurses place an OCL splint (he states that his splint is broken down and is no longer of any use. Patient does have a sling I have offered the patient Motrin for pain he states he has some at home. I have advised the patient to follow-up with [facility] fracture/bone clinic tomorrow morning at 8:30 AM. Patient is to continue Advil every 6 hours as needed for pain - Departure Time of Disposition: 21:04 Departure Disposition: Home Clinical Impression: Fracture of radial head, left, closed Qualifiers: Encounter type: subsequent encounter Fracture alignment: nondisplaced Fracture healing: with nonunion Qualified Code(s): S52.125K - Nondisplaced fracture of head of left radius, subsequent encounter for closed fracture with nonunion Condition: Fair Critical Care Time: No Referrals: DOCTOR,NO FAMILY [Primary Care Provider] - Additional Instructions: Return home. Cold packs to left elbow 24-48 hours. Continue to use your sling and splint. Advil every 6 hours as needed for pain. Follow-up with [facility] bone and joint clinic tomorrow morning 8:30 AM. May alternately follow-up with your family doctor (call first) list. Return for acute distress or for severe symptoms.
[2018-06-24 21:22] VITALS: BP 126/60; PULSE 56; O2SAT 96
--- NOTE | 2018-06-25 08:39 | XRAY ---
Indication: Pain following skateboard injury one week ago. Comparison: June 17, 2018. 3 views of the left elbow demonstrates stable nondisplaced radial head fracture with effusion best seen on lateral view. No other bony, articular, or soft tissue abnormalities.
== END 2018-06-24 21:24 | disposition home or self-care (01) ==
LOC: ED 19:59
PROC: 2W39X1Z Immobilization of Left Upper Extremity using Splint (ICD-10-PCS; principal; 2018-06-24)
DX: S52.122D Displaced fracture of head of left radius, subsequent encounter for closed fracture with routine healing (principal); M25.522 Pain in left elbow; M25.422 Effusion, left elbow
CPT/HCPCS: 29105; 73080; 99283

== ENCOUNTER 2018-11-22 19:41 | Emergency (ER) | payer MEDICAID, OTHER ==
[2018-11-22 19:55] VITALS: O2SAT 99
--- NOTE | 2018-11-22 21:09 | ERPHSYRPT ---
- History of Present Illness Time Seen by Provider: 11/22/18 20:59 Historian: patient Exam Limitations: no limitations Patient Subjective Stated Complaint: stated has been vomiting all day, last ate this am. also c/o headache, worried about food poisoning. denies stomach pain or tenderness. states has a at home born Sunday worried about the flu Triage Nursing Assessment: pt ambulated treatment area. resp easy, lungs CTA, skin pale, warm and dry. sitting on side of bed. Vomited last right before he came to ER. last ate at 8am this morning. Physician History: The patient is a 23-year-old male complaining of vomiting all day. He wonders if he has food poisoning. He denies abdominal pain, although he states his abdomen feels queasy. He has a headache as well. He denies diarrhea. Timing/Duration: today, intermittent, sudden Activities at Onset: none Quality: aching Abdominal Pain Onset Location: epigastric Pain Radiation: no radiation Severity of Pain-Max: mild Severity of Pain-Current: mild Modifying Factors: Improves With: vomiting Associated Symptoms: nausea, vomiting Previous symptoms: no prior history Allergies/Adverse Reactions: No Known Drug Allergies Allergy (Verified 06/24/18 20:19) Hx Tetanus, Diphtheria Vaccination/Date Given: Yes Hx Influenza Vaccination/Date Given: No Hx Pneumococcal Vaccination/Date Given: No Immunizations Up to Date: Yes - Review of Systems Constitutional: No Fever, No Chills Eyes: No Symptoms Ears, Nose, & Throat: No Symptoms Respiratory: No Cough, No Dyspnea Cardiac: No Chest Pain, No Edema, No Syncope Abdominal/Gastrointestinal: Nausea, Vomiting Genitourinary Symptoms: No Dysuria Musculoskeletal: No Back Pain, No Neck Pain Skin: No Rash Neurological: No Dizziness, No Focal Weakness, No Sensory Changes Psychological: No Symptoms Endocrine: No Symptoms Hematologic/Lymphatic: No Symptoms Immunological/Allergic: No Symptoms All Other Systems: Reviewed and Negative - Past Medical History Pertinent Past Medical History: Yes Neurological History: No Pertinent History ENT History: No Pertinent History Cardiac History: No Pertinent History Respiratory History: Asthma Endocrine Medical History: No Pertinent History Musculoskeletal History: No Pertinent History GI Medical History: No Pertinent History History: No Pertinent History Psycho-Social History: No Pertinent History Male Reproductive Disorders: No Pertinent History Other Medical History: Childhood asthma,kidney stones - Past Surgical History Past Surgical History: No Neuro Surgical History: No Pertinent History Cardiac: No Pertinent History Respiratory: No Pertinent History Gastrointestinal: No Pertinent History Genitourinary: No Pertinent History Musculoskeletal: No Pertinent History Male Surgical History: No Pertinent History Other Surgical History: DENIES SURGERY - Social History Smoking Status: Current every day smoker How long have you smoked: 7 years Exposure to second hand smoke: No Drug Use: none Patient Lives Alone: No - Nursing Vital Signs Nursing Vital Signs: Initial Vital Signs Temperature 97.2 F 11/22/18 19:42 Pulse Rate 59 L 11/22/18 19:42 Respiratory Rate 16 11/22/18 19:42 Blood Pressure 129/92 11/22/18 19:42 O2 Sat by Pulse Oximetry 99 11/22/18 19:42 Pain Scale Pain Intensity 2 - Physical Exam General Appearance: no apparent distress, alert Eye Exam: PERRL/EOMI, eyes nml inspection Ears, Nose, Throat Exam: normal ENT inspection, pharynx normal, moist mucous membranes Neck Exam: normal inspection, non-tender, supple, full range of motion Respiratory Exam: normal breath sounds, lungs clear, No respiratory distress Cardiovascular Exam: regular rate/rhythm, normal heart sounds Gastrointestinal/Abdomen Exam: soft, No tenderness, No mass Rectal Exam: not done Back Exam: normal inspection, normal range of motion, No CVA tenderness, No vertebral tenderness Extremity Exam: normal inspection, normal range of motion, pelvis stable Neurologic Exam: alert, oriented x 3, cooperative, normal mood/affect, nml cerebellar function, sensation nml, No motor deficits Skin Exam: normal color, warm, dry SpO2 Interpretation: normal SpO2: 99 O2 Delivery: Room Air - Radiology Exams Chest X-ray Interpretation: Interpreted by me, Negative Abdomen X-ray Interpretation: Interpreted by me, Negative Ordered Tests: Active Orders 24 hr Category Date Time Status IV Insertion STAT Care 11/22/18 21:11 Active OBSTR/ACUTE ABDOMEN SERIES Stat Exams 11/22/18 21:11 Taken BMP Stat Lab 11/22/18 21:15 Completed CBC W DIFF Stat Lab 11/22/18 21:15 Completed Lactic Acid Stat Lab 11/22/18 21:11 Completed Medication Summary Generic Name Dose Route Start Last Admin Trade Name Freq PRN Reason Stop Dose Admin Sodium Chloride 1,000 mls @ 999 mls/hr 11/22/18 21:11 11/22/18 21:26 Sodium Chloride 0.9% 1000 Ml IV 11/22/18 22:11 999 mls/hr .Q1H1M STA Administration Discontinued Medications Generic Name Dose Route Start Last Admin Trade Name Pranav PRN Reason Stop Dose Admin Famotidine 20 mg 11/22/18 21:11 11/22/18 21:27 Pepcid 20 Mg Vial IV 11/22/18 21:12 20 mg STAT ONE Administration Famotidine Confirm 11/22/18 21:19 Pepcid 20 Mg Vial Administered 11/22/18 21:20 Dose 20 mg IV .STK-MED ONE Sodium Chloride Confirm 11/22/18 21:19 Sodium Chloride 0.9% 1000 Ml Administered 11/22/18 21:20 Dose 1,000 mls @ ud .ROUTE .STK-MED ONE Promethazine HCl 25 mg 11/22/18 21:11 11/22/18 21:28 Phenergan 25 Mg Inj IM 11/22/18 21:12 25 mg STAT ONE Administration Promethazine HCl Confirm 11/22/18 21:19 Phenergan 25 Mg Inj Administered 11/22/18 21:20 Dose 25 mg .ROUTE .STK-MED ONE Lab/Rad Data: Laboratory Result Diagrams 11/22/18 21:15 11/22/18 21:15 Laboratory Results 11/22/18 11/22/18 11/22/18 Range/Units 21:15 21:15 21:11 WBC 8.4 (4.0-10.5) K/mm3 RBC 5.18 (4.1-5.6) M/mm3 Hgb 16.0 (12.5-18.0) gm/dl Hct 45.1 (42-50) % MCV 87.1 (78-100) fl MCH 30.9 (26-32) pg MCHC 35.5 (32-36) g/dl RDW 13.1 (11.5-14.0) % Plt Count 243 (150-450) K/mm3 MPV 9.3 (6-9.5) fl Gran % 60.9 (36.0-66.0) % Eos # (Auto) 0.23 (0-0.5) Absolute Lymphs (auto) 2.45 (1.0-4.6) Absolute Monos (auto) 0.56 (0.0-1.3) Lymphocytes % 29.2 (24.0-44.0) % Monocytes % 6.7 (0.0-12.0) % Eosinophils % 2.7 (0.00-5.0) % Basophils % 0.5 (0.0-0.4) % Absolute Granulocytes 5.11 (1.4-6.9) Basophils # 0.04 (0-0.4) Sodium 140 (137-145) mmol/L Potassium 4.1 (3.5-5.1) mmol/L Chloride 104 (98-107) mmol/L Carbon Dioxide 27 (22-30) mmol/L Anion Gap 13.7 (5-15) MEQ/L BUN 13 (9-20) mg/dL Creatinine 0.79 (0.66-1.25) mg/dL Estimated GFR > 60.0 ML/MIN Glucose 84 (74-106) mg/dL Lactic Acid 0.8 (0.4-2.0) Calcium 9.7 (8.4-10.2) mg/dL - Progress Progress: improved Counseled pt/family regarding: lab results, diagnosis, rad results - Departure Time of Disposition: 22:03 Departure Disposition: Home Clinical Impression: Vomiting Condition: Stable Critical Care Time: No Referrals: DOCTOR,NO FAMILY [Primary Care Provider] - Additional Instructions: You had acute episode of vomiting. You were given Phenergan 25 mg by IM and fluids by IV in the ER. Take Zofran 4 mg ODT every 6 hours as needed for nausea and vomiting. Begin with an all liquid diet and advance as tolerated. Follow-up with your primary medical doctor as needed. Prescriptions: Ondansetron ODT 4 MG [Zofran Odt 4 mg] 4 mg PO Q6H PRN PRN #10 tab.rapdis PRN Reason: Nausea/Vomiting
[2018-11-22] MEDS ORDERED: Sodium Chloride 0.9% 1000 ML 1,000 ML IV STA (21:11)
[2018-11-22] MEDS ORDERED: Pepcid 20 MG VIAL IV ONE ×2 (21:11→21:19)
[2018-11-22] MEDS ORDERED: Phenergan 25 MG INJ IM ONE (21:11)
[2018-11-22] MEDS ORDERED: Phenergan 25 MG INJ ONE (21:19)
[2018-11-22] MEDS ORDERED: Sodium Chloride 0.9% 1000 ML 1,000 ML ONE (21:19)
[2018-11-22 21:27] LABS: BASOPHIL % 0.5 % (0.0-0.4); Basophil (Absolute #) 0.04 (0-0.4); Eosinophil % 2.7 % (0.00-5.0); Eosinophil (Absolute #) 0.23 (0-0.5); Granulocyte Absolute (ANC) 5.11 (1.4-6.9); Granulocytes % 60.9 % (36.0-66.0); Hematocrit 45.1 % (42-50); Lymphocyte (Absolute #) 2.45 (1.0-4.6); Lymphocytes % 29.2 % (24.0-44.0); Mean Cell Volume 87.1 fl (78-100); Mean Corpuscular Hemoglobin 30.9 pg (26-32); Mean Corpuscular Hgb Concent. 35.5 g/dl (32-36); Mean Platelet Volume 9.3 fl (6-9.5); Monocyte (Absolute #) 0.56 (0.0-1.3); Monocytes % 6.7 % (0.0-12.0); Platelet Count 243 K/mm3 (150-450); Red Blood Count 5.18 M/mm3 (4.1-5.6); Red Cell Distribution Width 13.1 % (11.5-14.0); White Blood Count 8.4 K/mm3 (4.0-10.5)
[2018-11-22 21:37] LABS: ANION GAP 13.7 MEQ/L (5-15); BLOOD UREA NITROGEN 13 mg/dL (9-20); CHLORIDE 104 mmol/L (98-107); Calcium 9.7 mg/dL (8.4-10.2); Carbon Dioxide 27 mmol/L (22-30); Creatinine 1 0.79 mg/dL (0.66-1.25); Glucose 84 mg/dL (74-106); Potassium 4.1 mmol/L (3.5-5.1); SODIUM 140 mmol/L (137-145)
[2018-11-22 22:11] VITALS: PULSE 64
[2018-11-22 22:39] VITALS: BP 124/68
--- NOTE | 2018-11-23 07:59 | XRAY ---
Indication: Vomiting. Comparison: Chest exam September 27, 2018. 2 views of the abdomen nonacute and nonobstructed. 2 tiny right upper quadrant calcifications either hepatic, renal, or gallbladder etiology. Remaining solid organs and osseous structures are unremarkable. Single AP chest again demonstrates normal heart, lungs, and bony thorax. Impression: 1. Right upper quadrant calcifications. Rule out hepatic calcified granulomas, gallstones, or renal calculi. CT may yield further information if clinically warranted. 2. Normal one view chest.
== END 2018-11-22 22:44 | disposition home or self-care (01) ==
LOC: ED 19:41
DX: R11.10 Vomiting, unspecified (principal); R51 Headache
CPT/HCPCS: 36000; 36415; 74022; 80048; 83605; 85025; 96360; 96372; 96374; 99284; J2550

== ENCOUNTER 2020-05-06 19:42 | Emergency (ER) | payer MEDICAID ==
--- NOTE | 2020-05-06 20:18 | ERPHSYRPT ---
- History of Present Illness Source: patient Exam Limitations: no limitations Physician History: 25 yo wm w hematuria x3days. Pt denies pain/dysuria/fever/N/V/D/trauma/penile discharge/testicular pain-edema. He has a h/o kidney stones that he has passed. Timing/Duration: other (3days) Activites at Onset: none Quality: other (No pain) Onset Location: other (No pain) Modifying Factors: Improves With: nothing Associated Symptoms: No abdominal pain, No fever, No chills, No diaphoresis, No nausea, No vomiting, No dysuria, No nocturia, No polyuria, No urinary frequency, No loss of bladder control, No lower back pain, No lumps, No mass, No swelling, No syncope Prior abdominal problems: none Sexual intercourse history: non-contributory Allergies/Adverse Reactions: No Known Drug Allergies Allergy (Verified 05/06/20 20:18) Hx Tetanus, Diphtheria Vaccination/Date Given: Yes Hx Influenza Vaccination/Date Given: No Hx Pneumococcal Vaccination/Date Given: No - Past Medical History Pertinent Past Medical History: Yes Neurological History: No Pertinent History ENT History: No Pertinent History Cardiac History: No Pertinent History Respiratory History: Asthma Endocrine Medical History: No Pertinent History Musculoskeletal History: No Pertinent History GI Medical History: No Pertinent History History: No Pertinent History Psycho-Social History: No Pertinent History Male Reproductive Disorders: No Pertinent History Other Medical History: Childhood asthma,kidney stones - Past Surgical History Past Surgical History: No Neuro Surgical History: No Pertinent History Cardiac: No Pertinent History Respiratory: No Pertinent History Gastrointestinal: No Pertinent History Genitourinary: No Pertinent History Musculoskeletal: No Pertinent History Male Surgical History: No Pertinent History Other Surgical History: DENIES SURGERY - Social History Smoking Status: Current every day smoker How long have you smoked: 7 years Exposure to second hand smoke: No Drug Use: none Patient Lives Alone: No Significant Family History: no pertinent family hx - Review of Systems Constitutional: No Symptoms Eyes: No Symptoms Ears, Nose, & Throat: No Symptoms Respiratory: No Symptoms Cardiac: No Symptoms Abdominal/Gastrointestinal: No Symptoms Genitourinary Symptoms: Hematuria, No Dysuria, No Frequency, No Hesitancy, No Incontinence, No Urgency, No Urinary Retention, No Flank Pain, No Testicle Pain, No Penile Discharge Musculoskeletal: No Symptoms Skin: No Symptoms Neurological: No Symptoms Psychological: No Symptoms Endocrine: No Symptoms Hematologic/Lymphatic: No Symptoms Immunological/Allergic: No Symptoms - Nursing Vital Signs Nursing Vital Signs: Initial Vital Signs Temperature 98.2 F 05/06/20 20:01 Pulse Rate 68 05/06/20 20:01 Respiratory Rate 16 05/06/20 20:01 Blood Pressure 150/81 05/06/20 20:01 O2 Sat by Pulse Oximetry 99 05/06/20 20:01 Pain Scale Pain Intensity 6 - Physical Exam General Appearance: no apparent distress Eye Exam: PERRL/EOMI, eyes nml inspection Ears, Nose, Throat Exam: normal ENT inspection, pharynx normal Neck Exam: normal inspection, non-tender, supple, full range of motion, No meningismus, No mass, No Brudzinski Respiratory Exam: normal breath sounds, lungs clear, airway intact Cardiovascular Exam: regular rate/rhythm, normal heart sounds, normal peripheral pulses Gastrointestinal/Abdomen Exam: soft, normal bowel sounds, No tenderness Rectal Exam: deferred Back Exam: normal inspection Extremity Exam: normal inspection, normal range of motion Neurologic Exam: alert, oriented x 3, cooperative, edge sander II-XII nml as tested, normal mood/affect, nml cerebellar function, nml station & gait, sensation nml, No motor deficits, No sensory deficit Skin Exam: normal color, warm, dry Lymphatic Exam: No adenopathy - Course Nursing assessment & vital signs reviewed: Yes - CT Exams Abdomen/Pelvis CT Interpretation: Tele-radiologist Report (7-8mm L UPJ stone) Ordered Tests: Active Orders 24 hr Category Date Time Status ABDOMEN AND PELVIS W/0 CONTRAS [CT] Stat Exams 05/06/20 20:46 Taken CBC W DIFF Stat Lab 05/06/20 20:57 Completed CK (IN-HOUSE) [CK-Creatinine Phosphokinase] Stat Lab 05/06/20 20:48 Completed CMP Stat Lab 05/06/20 20:57 Completed CULTURE,URINE Stat Lab 05/06/20 20:11 Received UA W/RFX UR CULTURE Stat Lab 05/06/20 20:11 Completed Medication Summary Discontinued Medications Generic Name Dose Route Start Last Admin Trade Name Freq PRN Reason Stop Dose Admin Sodium Chloride 1,000 mls @ 999 mls/hr 05/06/20 20:47 05/06/20 21:58 Sodium Chloride 0.9% 1000 Ml IV 05/06/20 21:47 Infused .Q1H1M STA Infusion Sodium Chloride Confirm 05/06/20 20:50 Sodium Chloride 0.9% 1000 Ml Administered 05/06/20 20:51 Dose 1,000 mls @ ud .ROUTE .STK-MED ONE Ceftriaxone Sodium/Dextrose 1 g in 50 mls @ 100 mls/hr 05/06/20 21:38 05/06/20 21:44 Rocephin 1 Gm-D5w 50 Ml Bag IV 05/06/20 22:07 100 mls/hr STAT STA 100 mls/hr Administration Ceftriaxone Sodium/Dextrose Confirm 05/06/20 21:41 Rocephin 1 Gm-D5w 50 Ml Bag Administered 05/06/20 21:42 Dose 1 g in 50 mls @ ud IV .STK-MED ONE Ketorolac Tromethamine 30 mg 05/06/20 22:18 05/06/20 22:22 Toradol 30 Mg Injection IV 05/06/20 22:19 30 mg STAT ONE Administration Ketorolac Tromethamine Confirm 05/06/20 22:20 Toradol 30 Mg Injection Administered 05/06/20 22:21 Dose 30 mg .ROUTE .STK-MED ONE Lab/Rad Data: Laboratory Result Diagrams 05/06/20 20:57 05/06/20 20:57 Laboratory Results 05/06/20 05/06/20 05/06/20 Range/Units 20:57 20:57 20:48 WBC 9.9 (4.0-10.5) K/mm3 RBC 5.29 (4.1-5.6) M/mm3 Hgb 15.8 (12.5-18.0) gm/dl Hct 46.8 (42-50) % MCV 88.5 (78-100) fl MCH 29.9 (26-32) pg MCHC 33.8 (32-36) g/dl RDW 13.5 (11.5-14.0) % Plt Count 239 (150-450) K/mm3 MPV 9.0 (7.5-11.0) fl Gran % 57.9 (36.0-66.0) % Eos # (Auto) 0.16 (0-0.5) Absolute Lymphs (auto) 3.38 (1.0-4.6) Absolute Monos (auto) 0.57 (0.0-1.3) Lymphocytes % 34.2 (24.0-44.0) % Monocytes % 5.8 (0.0-12.0) % Eosinophils % 1.6 (0.00-5.0) % Basophils % 0.5 (0.0-0.4) % Absolute Granulocytes 5.71 (1.4-6.9) Basophils # 0.05 (0-0.4) Sodium 139 (137-145) mmol/L Potassium 3.7 (3.5-5.1) mmol/L Chloride 103 (98-107) mmol/L Carbon Dioxide 25 (22-30) mmol/L Anion Gap 14.4 (5-15) MEQ/L BUN 9 (9-20) mg/dL Creatinine 0.70 (0.66-1.25) mg/dL Estimated GFR > 60.0 ML/MIN Glucose 84 (74-106) mg/dL Calcium 10.0 (8.4-10.2) mg/dL Total Bilirubin 0.70 (0.2-1.3) mg/dL AST 107 H (17-59) U/L ALT 185 H (0-50) U/L Alkaline Phosphatase 94 (38-126) U/L Creatine Kinase 181 H (55-170) U/L Serum Total Protein 8.9 H (6.3-8.2) g/dL Albumin 5.1 H (3.5-5.0) g/dL Urine Color (YELLOW) Urine Appearance (CLEAR) Urine pH (5-6) Ur Specific Omega (1.005-1.025) Urine Protein (Negative) Urine Ketones (NEGATIVE) Urine Blood (0-5) José Miguel/ul Urine Nitrite (NEGATIVE) Urine Bilirubin (NEGATIVE) Urine Urobilinogen (0-1) mg/dL Ur Leukocyte Esterase (NEGATIVE) Urine WBC (Auto) (0-5) /HPF Urine RBC (Auto) (0-2) /HPF U Epithel Cells (Auto) (FEW) /HPF Urine Bacteria (Auto) (NEGATIVE) /HPF Urine Mucus (Auto) (NEGATIVE) /HPF Urine Culture Reflexed (NO) Urine Glucose (NEGATIVE) mg/dL 05/06/20 Range/Units 20:11 WBC (4.0-10.5) K/mm3 RBC (4.1-5.6) M/mm3 Hgb (12.5-18.0) gm/dl Hct (42-50) % MCV (78-100) fl MCH (26-32) pg MCHC (32-36) g/dl RDW (11.5-14.0) % Plt Count (150-450) K/mm3 MPV (7.5-11.0) fl Gran % (36.0-66.0) % Eos # (Auto) (0-0.5) Absolute Lymphs (auto) (1.0-4.6) Absolute Monos (auto) (0.0-1.3) Lymphocytes % (24.0-44.0) % Monocytes % (0.0-12.0) % Eosinophils % (0.00-5.0) % Basophils % (0.0-0.4) % Absolute Granulocytes (1.4-6.9) Basophils # (0-0.4) Sodium (137-145) mmol/L Potassium (3.5-5.1) mmol/L Chloride (98-107) mmol/L Carbon Dioxide (22-30) mmol/L Anion Gap (5-15) MEQ/L BUN (9-20) mg/dL Creatinine (0.66-1.25) mg/dL Estimated GFR ML/MIN Glucose (74-106) mg/dL Calcium (8.4-10.2) mg/dL Total Bilirubin (0.2-1.3) mg/dL AST (17-59) U/L ALT (0-50) U/L Alkaline Phosphatase (38-126) U/L Creatine Kinase (55-170) U/L Serum Total Protein (6.3-8.2) g/dL Albumin (3.5-5.0) g/dL Urine Color RED (YELLOW) Urine Appearance CLOUDY (CLEAR) Urine pH 6.0 (5-6) Ur Specific Omega 1.027 (1.005-1.025) Urine Protein 100 (Negative) Urine Ketones NEGATIVE (NEGATIVE) Urine Blood LARGE (0-5) José Miguel/ul Urine Nitrite NEGATIVE (NEGATIVE) Urine Bilirubin NEGATIVE (NEGATIVE) Urine Urobilinogen 2 (0-1) mg/dL Ur Leukocyte Esterase NEGATIVE (NEGATIVE) Urine WBC (Auto) >100 (0-5) /HPF Urine RBC (Auto) >101 (0-2) /HPF U Epithel Cells (Auto) NONE (FEW) /HPF Urine Bacteria (Auto) RARE (NEGATIVE) /HPF Urine Mucus (Auto) MODERATE (NEGATIVE) /HPF Urine Culture Reflexed YES (NO) Urine Glucose NEGATIVE (NEGATIVE) mg/dL - Progress Progress: improved Progress Note: 05/06/20 22:08 1L NS bolus/1gm IV rocephin Counseled pt/family regarding: lab results, diagnosis, need for follow-up - Departure Departure Disposition: Home Clinical Impression: Kidney stone on left side, Urinary tract infection, Liver function abnormality Condition: Stable Critical Care Time: No Referrals: DOCTOR,NO FAMILY [Primary Care Provider] - RADHA MEDINA [COURTESY STAFF] - Instructions: Kidney Stones in Adults, Urinary Tract Infection, Adult (DC) Additional Instructions: Strain all urine Start Bactrim twice a day Follow up with Dr. Medina Return to ER for increasing pain or rtemperature greater than 100.5 Prescriptions: Sulfamethoxazole/Trimethoprim [Bactrim Ds Tablet] 1 each PO BID 7 Days #14 tablet
[2020-05-06 20:39] LABS: Appearance CLOUDY (CLEAR); Bacteria RARE /HPF (NEGATIVE); Bilirubin NEGATIVE (NEGATIVE); Blood LARGE Ery/ul (0-5); Glucose NEGATIVE (NEGATIVE); Ketones NEGATIVE (NEGATIVE); Leukocyte Esterase NEGATIVE (NEGATIVE); Mucus MODERATE /HPF (NEGATIVE); Nitrite NEGATIVE (NEGATIVE); Protein,Urine Dip 100 (Negative); Specific Gravity 1.027 (1.005-1.025); Urobilinogen 2 mg/dL (0-1); WBC >100 /HPF (0-5)
[2020-05-06 20:40] LABS: RBC >101 /HPF (0-2)
[2020-05-06] MEDS ORDERED: Sodium Chloride 0.9% 1000 ML 1,000 ML IV STA (20:47)
[2020-05-06] MEDS ORDERED: Sodium Chloride 0.9% 1000 ML 1,000 ML ONE (20:50)
[2020-05-06 21:00] LABS: Absolute Neutrophil Ct (ANC) 5.71 (1.4-6.9); BASOPHIL % 0.5 % (0.0-0.4); Basophil (Absolute #) 0.05 (0-0.4); Eosinophil % 1.6 % (0.00-5.0); Eosinophil (Absolute #) 0.16 (0-0.5); Hematocrit 46.8 % (42-50); Hemoglobin 15.8 gm/dl (12.5-18.0); Lymphocyte (Absolute #) 3.38 (1.0-4.6); Lymphocytes % 34.2 % (24.0-44.0); Mean Cell Volume 88.5 fl (78-100); Mean Corpuscular Hemoglobin 29.9 pg (26-32); Mean Corpuscular Hgb Concent. 33.8 g/dl (32-36); Monocyte (Absolute #) 0.57 (0.0-1.3); Monocytes % 5.8 % (0.0-12.0); Neutrophil % 57.9 % (36.0-66.0); Platelet Count 239 K/mm3 (150-450); Red Blood Count 5.29 M/mm3 (4.1-5.6); Red Cell Distribution Width 13.5 % (11.5-14.0); White Blood Count 9.9 K/mm3 (4.0-10.5)
[2020-05-06 21:11] VITALS: O2SAT 100
[2020-05-06] MEDS ORDERED: ROCEPHIN 1 Gm-D5w 50 ml Bag** 1 G/50 ML IVPB IV STA (21:38)
[2020-05-06 21:39] LABS: ALBUMIN 5.1 g/dL (3.5-5.0); ALKALINE PHOSPHATASE 94 U/L (38-126); ANION GAP 14.4 MEQ/L (5-15); BLOOD UREA NITROGEN 9 mg/dL (9-20); CHLORIDE 103 mmol/L (98-107); Carbon Dioxide 25 mmol/L (22-30); Glucose 84 mg/dL (74-106); Potassium 3.7 mmol/L (3.5-5.1); SGOT/AST 107 U/L (17-59); SGPT/ALT 185 U/L (0-50); SODIUM 139 mmol/L (137-145); Total Protein 8.9 g/dL (6.3-8.2)
[2020-05-06] MEDS ORDERED: ROCEPHIN 1 Gm-D5w 50 ml Bag** 1 G/50 ML IVPB IV ONE (21:41)
[2020-05-06] MEDS ORDERED: TORAdol 30 mg Injection IV ONE (22:18)
[2020-05-06] MEDS ORDERED: TORAdol 30 mg Injection ONE (22:20)
[2020-05-06 22:33] VITALS: BP 120/63; PULSE 55
--- NOTE | 2020-05-07 08:15 | XRAY ---
Exam: CT of the abdomen and pelvis without IV contrast from 05/06/2020. CTDI: 5.07 mGy Comparison: CT of the abdomen and pelvis without IV contrast from 08/07/2017. Indication: Hematuria for 3 days, does not complain of pain, history of stones, no prior surgery. Technique: Non-IV contrast axial images were obtained through the abdomen and pelvis. Reconstructed coronal and sagittal images were created and reviewed. Findings: The visualized lung bases appear clear. Prior tiny nodule at the anterior lateral right lung base on 08/07/2017 is not seen on the current exam. The left kidney reveals 2 new stones adjacent to each other at the left ureteropelvic junction. These are probably best seen on sagittal image #111. One stone measures 5.8 mm in diameter and the other stone measures 4.9 mm in diameter. There is only minimal left hydronephrosis. No ureteral distention or other ureterolith is seen. However, I again see a nonobstructing stone within the upper pole of the left kidney representing no change. In addition, there is a stable tiny stone within the upper pole the right kidney anteriorly on axial image #34. A new larger 3.5 mm stone is seen within the midpole of the right kidney on axial image #35. Only a small amount of urine is seen within the urinary bladder. No bladder stone is seen. The liver appears unremarkable. No intrahepatic biliary duct distention is seen. No dense calcifications are seen within the gallbladder lumen. The spleen measures 13.5 cm in greatest craniocaudal dimension on sagittal image #142 suggesting borderline to slight splenomegaly. This is unchanged. The pancreas and adrenal glands appear unremarkable. The abdominal aorta reveals no aneurysm. No abnormal retroperitoneal lymphadenopathy is seen. There is no free intraperitoneal air or ventral abdominal wall hernia. The bowel appears nonobstructive. Scattered stool is seen throughout the colon. No bowel wall thickening is seen. I see no evidence of appendicitis within the right lower quadrant. No enlarged pelvic lymph nodes or free intraperitoneal fluid is seen. The seminal vesicles and prostate gland appear unremarkable. The skeleton reveals no fracture or other aggressive process. Impression: 1. There appear to be 2 stones adjacent to each other at the left ureteropelvic junction causing minimal left-sided hydronephrosis. This is new from 08/07/2017. 2. 2 nonobstructing stones are seen within the upper to mid aspect of the right kidney. The more inferior stone appears to be new from 08/07/2017. In addition, there is a stable nonobstructing stone within the upper pole of the left kidney. 3. The remainder the ureters and urinary bladder appear unremarkable. 4. Borderline is slight splenomegaly measuring 13.5 cm in greatest length, no change. 5. No other acute process is seen within the abdomen or pelvis.
== END 2020-05-06 22:50 | disposition home or self-care (01) ==
LOC: ED 19:42
DX: N20.0 Calculus of kidney (principal); N39.0 Urinary tract infection, site not specified; R79.89 Other specified abnormal findings of blood chemistry
CPT/HCPCS: 36000; 36415; 74176; 80053; 81001; 82550; 85025; 87086; 96360; 96365; 96374; 99284; J0696; J1885

== ENCOUNTER 2020-05-09 00:44 | Emergency (ER) | payer OTHER, MEDICAID ==
[2020-05-09] MEDS ORDERED: TORAdol 30 mg Injection IM ONE (01:03)
[2020-05-09] MEDS ORDERED: TORAdol 30 mg Injection ONE (01:05)
--- NOTE | 2020-05-09 01:06 | ERPHSYRPT ---
- History of Present Illness Time Seen by Provider: 05/09/20 01:04 Source: patient Exam Limitations: no limitations Patient Subjective Stated Complaint: pt states while skateboarding he landed on his rt ankle wrong and has been having pain since. Triage Nursing Assessment: pt alert and oriented, answers questions approp. pt hopped back to room on 1 foot. assisted from door to er entrance by nursing staff. old scabbing noted to rt foot and heel. mild swelling to outer aspect rt foot and ankle. pt reports tenderness to light palpation. cap refill and pedal pulse wnl. pt reports good sensation. Physician History: pt states while skateboarding he landed on his rt ankle wrong and has been having pain since. Method of Injury: sports injury Occurred: just prior to arrival Quality: constant Severity of Pain-Max: moderate Severity of Pain-Current: moderate Lower Extremities Pain: foot: right, ankle: right Modifying Factors: Improves With: nothing Associated Symptoms: unable to bear weight Allergies/Adverse Reactions: No Known Drug Allergies Allergy (Verified 05/09/20 00:49) Hx Tetanus, Diphtheria Vaccination/Date Given: Yes Hx Influenza Vaccination/Date Given: No Hx Pneumococcal Vaccination/Date Given: No Immunizations Up to Date: Yes Travel Risk - International Travel Have you traveled outside of the country in past 3 weeks: No - Coronavirus Screening Are you exhibiting any of the following symptoms?: No Close contact with a COVID-19 positive Pt in past 14-21 Days: No - Review of Systems Constitutional: No Symptoms Eyes: No Symptoms Ears, Nose, & Throat: No Symptoms Respiratory: No Symptoms Cardiac: No Symptoms Abdominal/Gastrointestinal: No Symptoms Genitourinary Symptoms: No Symptoms Musculoskeletal: Fall, Joint Pain, Joint Swelling - Past Medical History Pertinent Past Medical History: Yes Neurological History: No Pertinent History ENT History: No Pertinent History Cardiac History: No Pertinent History Respiratory History: Asthma Endocrine Medical History: No Pertinent History Musculoskeletal History: No Pertinent History GI Medical History: No Pertinent History History: No Pertinent History Psycho-Social History: No Pertinent History Male Reproductive Disorders: No Pertinent History Other Medical History: Childhood asthma,kidney stones - Past Surgical History Past Surgical History: No Neuro Surgical History: No Pertinent History Cardiac: No Pertinent History Respiratory: No Pertinent History Gastrointestinal: No Pertinent History Genitourinary: No Pertinent History Musculoskeletal: No Pertinent History Male Surgical History: No Pertinent History Other Surgical History: DENIES SURGERY - Social History Smoking Status: Current every day smoker How long have you smoked: 7 years Exposure to second hand smoke: No Drug Use: none Patient Lives Alone: No Significant Family History: no pertinent family hx - Nursing Vital Signs Nursing Vital Signs: Initial Vital Signs Temperature 98.5 F 05/09/20 00:51 Pulse Rate 78 05/09/20 00:51 Respiratory Rate 18 05/09/20 00:51 Blood Pressure 144/69 05/09/20 00:51 O2 Sat by Pulse Oximetry 98 05/09/20 00:51 Pain Scale Pain Intensity 8 - Physical Exam General Appearance: no apparent distress Eyes, Ears, Nose, Throat Exam: normal ENT inspection Neck Exam: normal inspection Cardiovascular/Respiratory Exam: chest non-tender Gastrointestinal/Abdominal Exam: non-tender Back Exam: normal inspection Ankle Exam: right ankle: limited range of motion, pain, soft tissue tenderness Foot Exam: right foot: limited range of motion, pain, soft tissue tenderness SpO2: 98 - Course Nursing assessment & vital signs reviewed: Yes - Radiology Exams Right Ankle X-ray Interpretation: Reviewed by me, Negative, No Fracture, No Subluxation Right Foot X-ray Interpretation: Reviewed by me, Negative, No Fracture, No Subluxation Ordered Tests: Active Orders 24 hr Category Date Time Status ANKLE (3 VIEWS) Stat Exams 05/09/20 01:02 Ordered FOOT (MINIMUM 3 VIEWS) Stat Exams 05/09/20 Ordered Medication Summary Discontinued Medications Generic Name Dose Route Start Last Admin Trade Name Freq PRN Reason Stop Dose Admin Ketorolac Tromethamine 60 mg 05/09/20 01:03 05/09/20 01:09 Toradol 30 Mg Injection IM 05/09/20 01:04 60 mg STAT ONE Administration Ketorolac Tromethamine Confirm 05/09/20 01:05 Toradol 30 Mg Injection Administered 05/09/20 01:06 Dose 60 mg .ROUTE .STK-MED ONE - Progress Progress: improved, pain not gone completely Counseled pt/family regarding: diagnosis, need for follow-up, rad results - Departure Departure Disposition: Home Clinical Impression: Right ankle sprain Qualifiers: Encounter type: initial encounter Involved ligament of ankle: deltoid ligament Qualified Code(s): S93.421A - Sprain of deltoid ligament of right ankle, initial encounter Condition: Stable Critical Care Time: No Referrals: DOCTOR,NO FAMILY [Primary Care Provider] - [facility] M-[id number] [phone] Instructions: Ankle Sprain (DC) Additional Instructions: SPRAINS/STRAINS/CONTUSIONS 1. Rest the affected area as much as possible for the next few days. 2. Apply ice to the affected area for 20-30 minutes at a time, several times a day. 3. If you receive an elastic wrap, wear it only while awake for comfort and support. Re-wrap the elastic wrap if it feels too tight or too loose. 4. If swelling is present, elevate the affected part above the level of the heart for at least 2 to 3 days. 5. Use splints, slings, or crutches as instructed. 6. Watch for severe swelling, coldness, numbness, and discoloration of the fingers and toes. See your family physician or return to the emergency department if any of these are noted. Discharge/Care Plan KELLY KING was seen on 05/09/20 in the Emergency Room. The patient was counseled regarding Diagnosis,Lab results, Imaging studies, need for follow up and when to return to the Emergency Room. Prescriptions given: Discharge Note I have spoken with the patient and/or caregivers. I have explained the patient's condition, diagnosis and treatment plan based on the information available to me at this time. I have answered the patient's and/or caregiver's questions and addressed any concerns. The patient and/or caregivers have as good understanding of the patient's diagnosis, condition and treatment plan as can be expected at this point. The vital signs have been stable. The patient's condition is stable and appropriate for discharge from the emergency department. The patient will pursue further outpatient evaluation with the primary care physician or other designated or consulting physician as outlined in the discharge instructions. The patient and/or caregivers are agreeable to this plan of care and follow-up instructions have been explained in detail. The patient an d/or caregivers have received these instruction. The patient/and or caregivers are aware that any significant change in condition or worsening of symptoms should prompt an immediate return to this or the closest emergency department or call 911. Prescriptions: Naproxen 375 mg [Naprosyn 375 mg] 375 mg PO Q8H #30 tablet
[2020-05-09 02:01] VITALS: BP 124/71; PULSE 71; O2SAT 99
--- NOTE | 2020-05-09 06:56 | XRAY ---
Indication: Pain following skateboarding injury. Comparison: December 17, 2017. 3 view right ankle demonstrates mild anterolateral soft tissue swelling. No other bony, articular, or soft tissue abnormalities.
--- NOTE | 2020-05-09 06:58 | XRAY ---
Indication: Pain following skateboarding injury. Comparison: December 17, 2017. 3 nonweightbearing views right foot demonstrates stable tiny cuboid accessory ossicle. No new/acute bony, articular, or soft tissue abnormalities.
== END 2020-05-09 02:00 | disposition home or self-care (01) ==
LOC: ED 00:44
DX: S93.421A Sprain of deltoid ligament of right ankle, initial encounter (principal); X50.0XXA Overexertion from strenuous movement or load, initial encounter; Y93.51 Activity, roller skating (inline) and skateboarding; Y92.9 Unspecified place or not applicable
CPT/HCPCS: 73610; 73630; 96372; 99284; J1885

== ENCOUNTER 2020-05-13 07:30 | Emergency (ER) | payer OTHER, MEDICAID ==
[2020-05-13] MEDS ORDERED: TORAdol 30 mg Injection IM ONE (07:46)
--- NOTE | 2020-05-13 07:55 | ERPHSYRPT ---
- History of Present Illness Time Seen by Provider: 05/13/20 07:42 Source: patient Exam Limitations: no limitations Patient Subjective Stated Complaint: pt here for pain to left side of abd and flank area, was dx last week kidney stone and has apt with urologist today Triage Nursing Assessment: pt alert, walked in, holding left side and moaning. has face mask in place, resp easy,skin w/d/p. moves all ext well Physician History: Patient is a 24-year-old male presents to our ED with complaint of left-sided flank pain. Patient was in our ED on May 06, 1 week ago for the same complaint. He was diagnosed with ureterolithiasis. Patient was observed to have 2 kidney stones located at the left UPJ 1 measuring 4.9 mm and a second measuring 5.8 mm. Patient is currently scheduled to see his urologist Dr. Medina. Patient is here for pain control. Patient denies trauma. No fever. No nausea or vomiting. No diarrhea. No rash. Is are mild to moderate in intensity. No specific worsening improving factors. Patient voices no other complaints at this time. Timing/Duration: week(s) Activites at Onset: none Quality: aching Onset Location: left flank Pain Radiation: suprapubic Severity of Pain-Max: moderate Severity of Pain-Current: mild Modifying Factors: Improves With: nothing Associated Symptoms: denies symptoms, No fever, No chills, No diaphoresis, No nausea, No vomiting, No nocturia, No polyuria, No urinary frequency, No loss of bladder control, No lower back pain Prior abdominal problems: similar symptoms Sexual intercourse history: non-contributory Allergies/Adverse Reactions: No Known Drug Allergies Allergy (Verified 05/13/20 07:47) Hx Tetanus, Diphtheria Vaccination/Date Given: Yes Hx Influenza Vaccination/Date Given: No Hx Pneumococcal Vaccination/Date Given: No Immunizations Up to Date: Yes Travel Risk - International Travel Have you traveled outside of the country in past 3 weeks: No - Coronavirus Screening Are you exhibiting any of the following symptoms?: No Close contact with a COVID-19 positive Pt in past 14-21 Days: No - Past Medical History Pertinent Past Medical History: Yes Neurological History: No Pertinent History ENT History: No Pertinent History Cardiac History: No Pertinent History Respiratory History: Asthma Endocrine Medical History: No Pertinent History Musculoskeletal History: No Pertinent History GI Medical History: No Pertinent History History: No Pertinent History Psycho-Social History: No Pertinent History Male Reproductive Disorders: No Pertinent History Other Medical History: Childhood asthma,kidney stones - Past Surgical History Past Surgical History: No Neuro Surgical History: No Pertinent History Cardiac: No Pertinent History Respiratory: No Pertinent History Gastrointestinal: No Pertinent History Genitourinary: No Pertinent History Musculoskeletal: No Pertinent History Male Surgical History: No Pertinent History Other Surgical History: DENIES SURGERY - Social History Smoking Status: Current every day smoker How long have you smoked: 7 years Exposure to second hand smoke: No Drug Use: none Patient Lives Alone: No Significant Family History: no pertinent family hx - Review of Systems Constitutional: No Symptoms, No Fever, No Chills Eyes: No Symptoms Ears, Nose, & Throat: No Symptoms Respiratory: No Symptoms, No Cough, No Dyspnea Cardiac: No Symptoms, No Chest Pain, No Edema, No Syncope Abdominal/Gastrointestinal: No Symptoms, No Abdominal Pain, No Nausea, No Vomiting, No Diarrhea Genitourinary Symptoms: No Symptoms, No Dysuria Musculoskeletal: No Symptoms, No Back Pain, No Neck Pain Skin: No Symptoms, No Rash Neurological: No Symptoms, No Dizziness, No Focal Weakness, No Sensory Changes Psychological: No Symptoms Endocrine: No Symptoms Hematologic/Lymphatic: No Symptoms Immunological/Allergic: No Symptoms All Other Systems: Reviewed and Negative - Nursing Vital Signs Nursing Vital Signs: Initial Vital Signs Temperature 97.6 F 05/13/20 07:42 Pulse Rate 65 05/13/20 07:42 Respiratory Rate 20 05/13/20 07:42 Blood Pressure 134/79 05/13/20 07:42 O2 Sat by Pulse Oximetry 99 05/13/20 07:42 Pain Scale Pain Intensity 7 - Physical Exam General Appearance: no apparent distress, alert Eye Exam: PERRL/EOMI Ears, Nose, Throat Exam: pharynx normal, moist mucous membranes Neck Exam: normal inspection, supple Respiratory Exam: normal breath sounds, lungs clear Cardiovascular Exam: regular rate/rhythm, No edema Gastrointestinal/Abdomen Exam: soft, No tenderness Back Exam: normal inspection, No CVA tenderness Extremity Exam: normal inspection, normal range of motion, No pedal edema Neurologic Exam: alert, oriented x 3, cooperative, sensation nml, No motor deficits Skin Exam: normal color, warm, dry, No rash SpO2 Interpretation: normal SpO2: 99 O2 Delivery: Room Air - Course Nursing assessment & vital signs reviewed: Yes Ordered Tests: Active Orders 24 hr Category Date Time Status IV Insertion STAT Care 05/13/20 08:03 Active CBC W DIFF Stat Lab 05/13/20 08:10 Completed CMP Stat Lab 05/13/20 08:10 Completed UA W/RFX UR CULTURE Stat Lab 05/13/20 08:10 Completed Medication Summary Discontinued Medications Generic Name Dose Route Start Last Admin Trade Name [place] PRN Reason Stop Dose Admin Sodium Chloride 1,000 mls @ 999 mls/hr 05/13/20 08:03 05/13/20 08:09 Sodium Chloride 0.9% 1000 Ml IV 05/13/20 09:03 999 mls/hr .Q1H1M STA Administration Sodium Chloride Confirm 05/13/20 08:08 Sodium Chloride 0.9% 1000 Ml Administered 05/13/20 08:09 Dose 1,000 mls @ ud .ROUTE .STK-MED ONE Ketorolac Tromethamine 30 mg 05/13/20 07:46 05/13/20 08:08 Toradol 30 Mg Injection IM 05/13/20 07:47 Not Given STAT ONE Ketorolac Tromethamine Confirm 05/13/20 08:00 Toradol 30 Mg Injection Administered 05/13/20 08:01 Dose 30 mg .ROUTE .STK-MED ONE Ketorolac Tromethamine 30 mg 05/13/20 08:03 05/13/20 08:07 Toradol 30 Mg Injection IV 05/13/20 08:04 30 mg STAT ONE Administration Lab/Rad Data: Laboratory Result Diagrams 05/13/20 08:10 05/13/20 08:10 Laboratory Results 05/13/20 05/13/20 05/13/20 Range/Units 08:10 08:10 08:10 WBC 8.6 (4.0-10.5) K/mm3 RBC 4.78 (4.1-5.6) M/mm3 Hgb 14.4 (12.5-18.0) gm/dl Hct 42.7 (42-50) % MCV 89.3 (78-100) fl MCH 30.1 (26-32) pg MCHC 33.7 (32-36) g/dl RDW 13.5 (11.5-14.0) % Plt Count 243 (150-450) K/mm3 MPV 9.1 (7.5-11.0) fl Gran % 61.1 (36.0-66.0) % Eos # (Auto) 0.19 (0-0.5) Absolute Lymphs (auto) 2.56 (1.0-4.6) Absolute Monos (auto) 0.54 (0.0-1.3) Lymphocytes % 29.9 (24.0-44.0) % Monocytes % 6.3 (0.0-12.0) % Eosinophils % 2.2 (0.00-5.0) % Basophils % 0.5 (0.0-0.4) % Absolute Granulocytes 5.24 (1.4-6.9) Basophils # 0.04 (0-0.4) Sodium 140 (137-145) mmol/L Potassium 3.8 (3.5-5.1) mmol/L Chloride 107 (98-107) mmol/L Carbon Dioxide 23 (22-30) mmol/L Anion Gap 14.0 (5-15) MEQ/L BUN 10 (9-20) mg/dL Creatinine 0.66 (0.66-1.25) mg/dL Estimated GFR > 60.0 ML/MIN Glucose 119 H (74-106) mg/dL Calcium 9.2 (8.4-10.2) mg/dL Total Bilirubin 0.30 (0.2-1.3) mg/dL AST 73 H (17-59) U/L ALT 116 H (0-50) U/L Alkaline Phosphatase 82 (38-126) U/L Serum Total Protein 7.8 (6.3-8.2) g/dL Albumin 4.3 (3.5-5.0) g/dL Urine Color YELLOW (YELLOW) Urine Appearance CLEAR (CLEAR) Urine pH 5.0 (5-6) Ur Specific [place] 1.020 (1.005-1.025) Urine Protein NEGATIVE (Negative) Urine Ketones NEGATIVE (NEGATIVE) Urine Blood NEGATIVE (0-5) José Miguel/ul Urine Nitrite NEGATIVE (NEGATIVE) Urine Bilirubin NEGATIVE (NEGATIVE) Urine Urobilinogen NEGATIVE (0-1) mg/dL Ur Leukocyte Esterase NEGATIVE (NEGATIVE) Urine WBC (Auto) 11-15 (0-5) /HPF Urine RBC (Auto) 3-5 (0-2) /HPF U Epithel Cells (Auto) NONE (FEW) /HPF Urine Bacteria (Auto) RARE (NEGATIVE) /HPF Urine Mucus (Auto) MODERATE (NEGATIVE) /HPF Urine Culture Reflexed NO (NO) Urine Glucose NEGATIVE (NEGATIVE) mg/dL - Progress Progress: improved Progress Note: 05/13/20 09:18 Patient reassessed. Pain significantly improved. Labs revealed normal renal function. Pyuria observed on UA however patient currently on antibiotics. Patient is currently on Bactrim. I spoke to nurse practitioner from Dr. Medina office. They will reassess him. They will determine if patient will require Flomax. They advised patient to stay n.p.o. Patient is currently n.p.o. and has not eaten since yesterday. This was conveyed to patient. Patient agrees to remain n.p.o. at least until his office visit today. Plan of care discussed with patient. He agrees with plan of care and will follow-up with Dr. Bullock today as scheduled. 05/13/20 09:27 Counseled pt/family regarding: lab results, diagnosis, need for follow-up - Departure Departure Disposition: Home Clinical Impression: Ureterolithiasis, Flank pain Condition: Stable Critical Care Time: No Referrals: DOCTOR,NO FAMILY [Primary Care Provider] - RADHA MEDINA [COURTESY STAFF] - Additional Instructions: Discharge/Care Plan CHRISTINEMATTLANDYNATTY LETICIA was seen on 05/13/20 in the Emergency Room. The patient was counseled regarding Diagnosis,Lab results, Imaging studies, need for follow up and when to return to the Emergency Room. Prescriptions given: Discharge Note I have spoken with the patient and/or caregivers. I have explained the patient's condition, diagnosis and treatment plan based on the information available to me at this time. I have answered the patient's and/or caregiver's questions and addressed any concerns. The patient and/or caregivers have as good understanding of the patient's diagnosis, condition and treatment plan as can be expected at this point. The vital signs have been stable. The patient's condition is stable and appropriate for discharge from the emergency department. The patient will pursue further outpatient evaluation with the primary care physician or other designated or consulting physician as outlined in the discharge instructions. The patient and/or caregivers are agreeable to this plan of care and follow-up instructions have been explained in detail. The patient and/or caregivers have received these instruction. The patient/and or caregivers are aware that any significant change in condition or worsening of symptoms should prompt an immediate return to this or the closest emergency department or call 911.
[2020-05-13] MEDS ORDERED: TORAdol 30 mg Injection ONE (08:00)
[2020-05-13] MEDS ORDERED: TORAdol 30 mg Injection IV ONE (08:03)
[2020-05-13] MEDS ORDERED: Sodium Chloride 0.9% 1000 ML 1,000 ML IV STA (08:03)
[2020-05-13] MEDS ORDERED: Sodium Chloride 0.9% 1000 ML 1,000 ML ONE (08:08)
[2020-05-13 08:19] LABS: Absolute Neutrophil Ct (ANC) 5.24 (1.4-6.9); BASOPHIL % 0.5 % (0.0-0.4); Basophil (Absolute #) 0.04 (0-0.4); Eosinophil % 2.2 % (0.00-5.0); Eosinophil (Absolute #) 0.19 (0-0.5); Hematocrit 42.7 % (42-50); Hemoglobin 14.4 gm/dl (12.5-18.0); Lymphocyte (Absolute #) 2.56 (1.0-4.6); Lymphocytes % 29.9 % (24.0-44.0); Mean Cell Volume 89.3 fl (78-100); Mean Corpuscular Hemoglobin 30.1 pg (26-32); Mean Corpuscular Hgb Concent. 33.7 g/dl (32-36); Mean Platelet Volume 9.1 fl (7.5-11.0); Monocyte (Absolute #) 0.54 (0.0-1.3); Monocytes % 6.3 % (0.0-12.0); Neutrophil % 61.1 % (36.0-66.0); Platelet Count 243 K/mm3 (150-450); Red Blood Count 4.78 M/mm3 (4.1-5.6); Red Cell Distribution Width 13.5 % (11.5-14.0); White Blood Count 8.6 K/mm3 (4.0-10.5)
[2020-05-13 08:35] LABS: Appearance CLEAR (CLEAR); Bacteria RARE /HPF (NEGATIVE); Bilirubin NEGATIVE (NEGATIVE); Blood NEGATIVE Ery/ul (0-5); Glucose NEGATIVE (NEGATIVE); Ketones NEGATIVE (NEGATIVE); Leukocyte Esterase NEGATIVE (NEGATIVE); Mucus MODERATE /HPF (NEGATIVE); Nitrite NEGATIVE (NEGATIVE); Protein,Urine Dip NEGATIVE (Negative); Urobilinogen NEGATIVE mg/dL (0-1)
[2020-05-13 08:45] VITALS: BP 125/72
[2020-05-13 08:53] LABS: ALBUMIN 4.3 g/dL (3.5-5.0); ALKALINE PHOSPHATASE 82 U/L (38-126); BLOOD UREA NITROGEN 10 mg/dL (9-20); CHLORIDE 107 mmol/L (98-107); Calcium 9.2 mg/dL (8.4-10.2); Carbon Dioxide 23 mmol/L (22-30); Creatinine 1 0.66 mg/dL (0.66-1.25); Glucose 119 mg/dL (74-106); Potassium 3.8 mmol/L (3.5-5.1); SGOT/AST 73 U/L (17-59); SGPT/ALT 116 U/L (0-50); SODIUM 140 mmol/L (137-145); Total Protein 7.8 g/dL (6.3-8.2)
[2020-05-13 09:04] VITALS: PULSE 53; O2SAT 99
== END 2020-05-13 09:38 ==
LOC: ED 07:30
DX: N20.1 Calculus of ureter (principal); R10.9 Unspecified abdominal pain
CPT/HCPCS: 36415; 80053; 81001; 85025; 96360; 96374; 99284; J1885

== ENCOUNTER 2021-03-25 14:35 | Emergency (ER) | payer MEDICAID, OTHER ==
[2021-03-25] MEDS ORDERED: XYLOCAINE 1% HCL 20 ML MDV ONE (14:41)
--- NOTE | 2021-03-25 16:17 | XRAY ---
Indication: Pain following crush injury. Comparison: None 3 view right hand demonstrates nondisplaced distal 2nd metacarpal oblique fracture and minimally displaced 1st phalanx tuft fracture with soft tissue swelling/laceration. No other bony, articular, or soft tissue abnormalities.
[2021-03-25 16:22] VITALS: PULSE 64
[2021-03-25] MEDS: KEFZOL 1 GM IM ONE (16:44)
[2021-03-25] MEDS ORDERED: BACIGUENT PACKET ONE (17:21)
--- NOTE | 2021-03-25 17:25 | ERPHSYRPT ---
- History of Present Illness Time Seen by Provider: 03/25/21 14:44 Source: patient Exam Limitations: no limitations Patient Subjective Stated Complaint: states was chopping wood and wood came back and hit right thumb Triage Nursing Assessment: pt comes in with c/o laceration to right thumb, pt states he was splitting wood and the wood came back and hit him in the thumb. pt thumb has a laceration just below the nail bed. nail is blue in color, swelling noted to thumb, states pain to thumb and pointer finger with movement but denies pain otherwise. denies sensation loss, able to move. Physician History: 25 years old up-to-date with immunization right-handed dominant male presented in the ER after he was splitting wood and the wood came back hitting on the right palm and dorsum of hand prior to arrival causing a laceration and loosening of thumb nail. Painful movements at the thumb and second digit. There was bleeding initially but stopped with applying pressure. No numbness on the distal part. Occurred: just prior to arrival Method of Injury: direct blow Quality: sharpness Severity of Pain-Max: moderate Severity of Pain-Current: moderate Extremities Pain Location: thumb: right, 2nd finger: right Modifying Factors: Improves With: immobilization, rest. Worsens With: movement Associated Symptoms: none Allergies/Adverse Reactions: No Known Drug Allergies Allergy (Verified 05/13/20 07:47) Hx Tetanus, Diphtheria Vaccination/Date Given: (unknown) Hx Influenza Vaccination/Date Given: No Hx Pneumococcal Vaccination/Date Given: No Travel Risk - International Travel Have you traveled outside of the country in past 3 weeks: No - Coronavirus Screening Are you exhibiting any of the following symptoms?: No Close contact with a COVID-19 positive Pt in past 14-21 Days: No - Vaccine Status Have you recieved a Covid-19 vaccination: No - Review of Systems Constitutional: No Symptoms Eyes: No Symptoms Respiratory: No Symptoms Cardiac: No Symptoms Abdominal/Gastrointestinal: No Symptoms Musculoskeletal: Injury, Joint Pain Skin: No Symptoms Neurological: No Symptoms Psychological: No Symptoms Endocrine: No Symptoms - Past Medical History Pertinent Past Medical History: Yes Neurological History: No Pertinent History ENT History: No Pertinent History Cardiac History: No Pertinent History Respiratory History: Asthma Endocrine Medical History: No Pertinent History Musculoskeletal History: No Pertinent History GI Medical History: No Pertinent History History: No Pertinent History Psycho-Social History: No Pertinent History Male Reproductive Disorders: No Pertinent History Other Medical History: Childhood asthma,kidney stones - Past Surgical History Past Surgical History: No Neuro Surgical History: No Pertinent History Cardiac: No Pertinent History Respiratory: No Pertinent History Gastrointestinal: No Pertinent History Genitourinary: No Pertinent History Musculoskeletal: No Pertinent History Male Surgical History: No Pertinent History Other Surgical History: kidney stone removal - Social History Smoking Status: Current every day smoker How long have you smoked: 11 years Exposure to second hand smoke: No Drug Use: marijuana Patient Lives Alone: No Significant Family History: no pertinent family hx - Nursing Vital Signs Nursing Vital Signs: Initial Vital Signs Temperature 98.7 F 03/25/21 14:36 Pulse Rate 81 03/25/21 14:36 Respiratory Rate 18 03/25/21 14:36 Blood Pressure 129/76 03/25/21 14:36 O2 Sat by Pulse Oximetry 97 03/25/21 14:36 Pain Scale Pain Intensity 2 - Physical Exam General Appearance: no apparent distress, alert Neck Exam: normal inspection, supple, full range of motion Cardiovascular/Respiratory Exam: chest non-tender, normal breath sounds, regular rate/rhythm Abdominal Exam: non-tender (She is) Back Exam: normal inspection, normal range of motion Shoulder Exam: normal inspection Elbow/Forearm Exam: normal inspection, non-tender, no evidence of injury Wrist Exam: normal inspection, non-tender, no evidence of injury, normal ROM Hand Exam: bone tenderness, laceration (3 cm laceration jagged edges underneath right thumb nailbed deep to bone with fracture. Distal neurovascular well intact. Tenderness second metacarpal distal area. Mild limitation movements at metacarpophalangeal joint of's index finger.), limited ROM, nail injury, soft tissue tenderness Neuro/Tendon Exam: normal sensation, normal motor functions, normal tendon functions Mental Status Exam: alert, oriented x 3, cooperative Skin Exam: normal color SpO2 Interpretation: normal SpO2: 96 O2 Delivery: Room Air Procedures - Laceration/Wound Repair Right Finger Time of Procedure: 17:19 Wound Location: Right Wound Length (cm): 3 Wound's Depth, Shape: into muscle, irregular, nail-avulsed Wound Explored: clean Irrigated: Yes Hibiclens Prep: Yes Anesthesia: 1% Lidocaine Volume Anesthetic (ccs): 5 Wound Repaired With: sutures Suture Size/Type: 4-0, prolene Number of Sutures: 7 Layer Closure?: No Splint Applied?: Yes Ordered Tests: Active Orders 24 hr Category Date Time Status Splint STAT Care 03/25/21 17:30 Completed Wound Care STAT Care 03/25/21 17:29 Completed HAND (MINIMUM 3 VIEWS) Stat Exams 03/25/21 15:47 Completed Medication Summary Discontinued Medications Generic Name Dose Route Start Last Admin Trade Name Pranav PRN Reason Stop Dose Admin Bacitracin Zinc Confirm 03/25/21 17:21 Baciguent Packet Administered 03/25/21 17:22 Dose 1 gm .ROUTE .STK-MED ONE Bacitracin Zinc 0.9 gm 03/25/21 17:29 03/25/21 17:33 Baciguent Packet TP 03/25/21 17:30 0.9 gm STAT ONE Administration Cefazolin Sodium 1 g 03/25/21 16:25 03/25/21 16:44 Kefzol 1 Gm IM 03/25/21 16:26 1 g STAT ONE Administration Lidocaine HCl Confirm 03/25/21 14:41 Xylocaine 1% Hcl 20 Ml Mdv Administered 03/25/21 14:42 Dose 10 ml .ROUTE .STK-MED ONE Lidocaine HCl 10 ml 03/25/21 17:29 03/25/21 17:33 Xylocaine 1% Hcl 20 Ml Mdv IJ 03/25/21 17:30 10 ml STAT ONE Administration - Progress Progress: improved Progress Note: 03/25/21 17:20 Nail came off. Laceration is repaired. Given Kefzol in here and started on Augmentin to go home. Recommended outpatient follow-up with hand surgery. Dr. Kent. Placed in splint to aware of it. Discussed signs symptoms of infection needing return to ER which she seemed understanding. Counseled pt/family regarding: diagnosis, need for follow-up, rad results - Departure Departure Disposition: Home Clinical Impression: Thumb fracture Qualifiers: Encounter type: initial encounter Fracture type: open Phalanx: distal Fracture alignment: displaced Laterality: right Qualified Code(s): S62.521B - Displaced fracture of distal phalanx of right thumb, initial encounter for open fracture Fracture, metacarpal shaft Qualifiers: Encounter type: initial encounter Metacarpal bone: second Fracture type: closed Fracture alignment: nondisplaced Laterality: right Qualified Code(s): S62.350A - Nondisplaced fracture of shaft of second metacarpal bone, right hand, initial encounter for closed fracture Condition: Stable Critical Care Time: No Referrals: DOCTOR,NO FAMILY [Primary Care Provider] - RAISSA CHO MD [NON-STAFF PHY W/O PRIVILEGES] - (Call Sunday for appointment) TOPHER CLIFTON MD [ACTIVE STAFF] - Follow Up with PCP/3 days Instructions: Laceration Repair With Stitches (DC) Additional Instructions: Keep it clean.. Use ibuprofen/[place] as needed for pain control. Follow-up with hand surgery. Return to ER for worsening pain swelling redness discharge/fever chills. Prescriptions: Hydrocodone/APAP 5/325 [[place] 5/325 mg] 1 each PO Q6H PRN PRN #10 tablet MDD 4 PRN Reason: Pain Amoxicillin/Potassium Clav [Augmentin 875-125 Tablet] 875 mg PO BID 7 Days #14 tablet
[2021-03-25 17:33] VITALS: BP 122/79
[2021-03-25] MEDS: BACIGUENT PACKET TP ONE (17:33)
[2021-03-25] MEDS: XYLOCAINE 1% HCL 20 ML MDV IJ ONE (17:33)
[2021-03-25 21:50] VITALS: O2SAT 96
== END 2021-03-25 17:38 | disposition home or self-care (01) ==
LOC: ED 14:35
DX: S62.521B Displaced fracture of distal phalanx of right thumb, initial encounter for open fracture (principal); S62.350A Nondisplaced fracture of shaft of second metacarpal bone, right hand, initial encounter for closed fracture; S61.011A Laceration without foreign body of right thumb without damage to nail, initial encounter; W22.8XXA Striking against or struck by other objects, initial encounter; Y93.89 Activity, other specified; Y92.89 Other specified places as the place of occurrence of the external cause
CPT/HCPCS: 12005; 73130; 96372; 99284; A4570; J0690; A9270-GY

== ENCOUNTER 2021-04-03 18:29 | Emergency (ER) | payer SELFPAY ==
--- NOTE | 2021-04-03 19:02 | ERPHSYRPT ---
- History of Present Illness Time Seen by Provider: 04/03/21 18:50 Source: patient Exam Limitations: no limitations Patient Subjective Stated Complaint: needing stitches removed from last week Triage Nursing Assessment: pt to ED requesting sutures be removed. states he had them done here last week, about 10 days ago. reports 1/10 pain at time but "mostly okay." noted 6 sutures to R thumb Physician History: Patient is a 25-year-old male who about 10 days ago smashed his left thumb nailbed area on a log he had 6 Prolene sutures placed he presents now for removal. Occurred: days ago (11) Method of Injury: direct blow Quality: constant Severity of Pain-Max: severe Severity of Pain-Current: none Extremities Pain Location: thumb: left (Transverse suture line across the nailbed of the left thumb appears to be healing well.) Modifying Factors: Improves With: nothing Allergies/Adverse Reactions: No Known Drug Allergies Allergy (Verified 04/03/21 18:48) Hx Tetanus, Diphtheria Vaccination/Date Given: Yes Hx Influenza Vaccination/Date Given: No Hx Pneumococcal Vaccination/Date Given: No Immunizations Up to Date: No Travel Risk - International Travel Have you traveled outside of the country in past 3 weeks: No - Coronavirus Screening Are you exhibiting any of the following symptoms?: No Close contact with a COVID-19 positive Pt in past 14-21 Days: No - Vaccine Status Have you recieved a Covid-19 vaccination: No - Review of Systems Constitutional: No Fever, No Chills Eyes: No Symptoms Ears, Nose, & Throat: No Symptoms Respiratory: No Cough, No Dyspnea Cardiac: No Chest Pain, No Edema, No Syncope Abdominal/Gastrointestinal: No Abdominal Pain, No Nausea, No Vomiting, No Diarrhea Genitourinary Symptoms: No Dysuria Musculoskeletal: No Back Pain, No Neck Pain Skin: No Rash Neurological: No Dizziness, No Focal Weakness, No Sensory Changes Psychological: No Symptoms Endocrine: No Symptoms All Other Systems: Reviewed and Negative - Past Medical History Pertinent Past Medical History: Yes Neurological History: No Pertinent History ENT History: No Pertinent History Cardiac History: No Pertinent History Respiratory History: Asthma Endocrine Medical History: No Pertinent History Musculoskeletal History: No Pertinent History GI Medical History: No Pertinent History History: No Pertinent History Psycho-Social History: No Pertinent History Male Reproductive Disorders: No Pertinent History Other Medical History: Childhood asthma,kidney stones - Past Surgical History Past Surgical History: No Neuro Surgical History: No Pertinent History Cardiac: No Pertinent History Respiratory: No Pertinent History Gastrointestinal: No Pertinent History Genitourinary: No Pertinent History Musculoskeletal: No Pertinent History Male Surgical History: No Pertinent History Other Surgical History: kidney stone removal - Social History Smoking Status: Current every day smoker How long have you smoked: 11 years Exposure to second hand smoke: No Drug Use: marijuana Patient Lives Alone: No Significant Family History: no pertinent family hx - Nursing Vital Signs Nursing Vital Signs: Initial Vital Signs Temperature 97.3 F 04/03/21 18:42 Pulse Rate 100 H 04/03/21 18:42 Respiratory Rate 18 04/03/21 18:42 Blood Pressure 133/80 04/03/21 18:42 O2 Sat by Pulse Oximetry 97 04/03/21 18:42 Pain Scale Pain Intensity 1 - Physical Exam General Appearance: no apparent distress Hand Exam: normal ROM, laceration (Healing laceration noted across the transverse area of the nailbed of the left thumb appears to be healing without infection), nail injury ( sutures will be removed per the nurse) SpO2: 97 - Course Nursing assessment & vital signs reviewed: Yes - Progress Progress: improved - Departure Departure Disposition: Home Clinical Impression: Visit for suture removal Condition: Stable Critical Care Time: No Referrals: DOCTOR,NO FAMILY [Primary Care Provider] - Instructions: Wound Care (DC)
[2021-04-03 20:23] VITALS: BP 118/64; PULSE 68; O2SAT 100
== END 2021-04-03 20:15 | disposition home or self-care (01) ==
LOC: ED 18:29
DX: Z48.02 Encounter for removal of sutures (principal)
CPT/HCPCS: 99283; G0463

== ENCOUNTER 2021-10-27 09:32 | Emergency (ER) | payer MEDICAID ==
--- NOTE | 2021-10-27 09:37 | ERPHSYRPT ---
- History of Present Illness Time Seen by Provider: 10/27/21 09:37 Source: patient Exam Limitations: no limitations Physician History: This 26-year-old white male smoker of cigarettes who presents with 2-day history of punctate raised white lesions on the left lateral and top of tongue. It is a 3 out of 10 pain. He has no other areas in his mouth that he is aware of. He has never had anything like this before. He has not had any flulike symptoms. He denies fevers. Timing/Duration: day(s) (2) Cough Quality/Degree: no cough Possible Cause: no prior episodes Modifying Factors: Improves With: nothing Associated Symptoms: denies symptoms Allergies/Adverse Reactions: No Known Drug Allergies Allergy (Verified 10/27/21 09:39) Hx Tetanus, Diphtheria Vaccination/Date Given: Yes Hx Influenza Vaccination/Date Given: No Hx Pneumococcal Vaccination/Date Given: No Travel Risk - International Travel Have you traveled outside of the country in past 3 weeks: No - Coronavirus Screening Are you exhibiting any of the following symptoms?: No Close contact with a COVID-19 positive Pt in past 14-21 Days: No - Vaccine Status Have you recieved a Covid-19 vaccination: No - Review of Systems Constitutional: No Symptoms Eyes: No Symptoms Ears, Nose, & Throat: Other (Tongue is sore with white raised lesions present) Respiratory: No Symptoms Cardiac: No Symptoms Abdominal/Gastrointestinal: No Symptoms Genitourinary Symptoms: No Symptoms Musculoskeletal: No Symptoms Skin: No Symptoms Neurological: No Symptoms Psychological: No Symptoms Endocrine: No Symptoms Hematologic/Lymphatic: No Symptoms Immunological/Allergic: No Symptoms All Other Systems: Reviewed and Negative - Past Medical History Pertinent Past Medical History: Yes Neurological History: No Pertinent History ENT History: No Pertinent History Cardiac History: No Pertinent History Respiratory History: Asthma Endocrine Medical History: No Pertinent History Musculoskeletal History: No Pertinent History GI Medical History: No Pertinent History History: No Pertinent History Psycho-Social History: No Pertinent History Male Reproductive Disorders: No Pertinent History Other Medical History: Childhood asthma,kidney stones - Past Surgical History Past Surgical History: No Neuro Surgical History: No Pertinent History Cardiac: No Pertinent History Respiratory: No Pertinent History Gastrointestinal: No Pertinent History Genitourinary: No Pertinent History Musculoskeletal: No Pertinent History Male Surgical History: No Pertinent History Other Surgical History: kidney stone removal - Social History Smoking Status: Current every day smoker How long have you smoked: 11 years Exposure to second hand smoke: No Drug Use: marijuana Patient Lives Alone: No Significant Family History: no pertinent family hx - Nursing Vital Signs Nursing Vital Signs: Initial Vital Signs Temperature 98.4 F 10/27/21 09:40 Pulse Rate 84 10/27/21 09:40 Respiratory Rate 16 10/27/21 09:40 Blood Pressure 137/91 10/27/21 09:40 O2 Sat by Pulse Oximetry 98 10/27/21 09:40 Pain Scale Pain Intensity 3 - Physical Exam General Appearance: no apparent distress, alert, anxiety Eye Exam: PERRL/EOMI, eyes nml inspection Ears, Nose, Throat Exam: moist mucous membranes, other (Tongue has white punctate lesions present primarily left side anterior and lateral. It is mildly edematous in this area as well. No other intraoral abnormalities present) Neck Exam: normal inspection, non-tender, supple, full range of motion Respiratory Exam: airway intact, No chest tenderness, No respiratory distress Gastrointestinal/Abdomen Exam: No tenderness Rectal Exam: not done Back Exam: normal inspection, normal range of motion, No CVA tenderness, No vertebral tenderness Extremity Exam: normal inspection, normal range of motion, pelvis stable Neurologic Exam: alert, oriented x 3, cooperative, ict project manager II-XII nml as tested, normal mood/affect, nml cerebellar function, nml station & gait, sensation nml Skin Exam: normal color, warm, dry Lymphatic Exam: No adenopathy SpO2 Interpretation: normal O2 Delivery: Room Air - Course Nursing assessment & vital signs reviewed: Yes Ordered Tests: Active Orders 24 hr Category Date Time Status CULTURE,WOUND Stat Lab 10/27/21 10:13 Received INFLUENZA A+B ADEEL Stat Lab 10/27/21 10:13 Completed Lab/Rad Data: Laboratory Results 10/27/21 10/27/21 Range/Units 10:13 10:13 Influenza Type A Ag NEGATIVE (NEGATIVE) Influenza Type B Ag NEGATIVE (NEGATIVE) Group A Strep Antibody NOT DETECTED (NEGATIVE) - Progress Progress: unchanged Air Movement: good Blood Culture(s) Obtained: No Counseled pt/family regarding: lab results, diagnosis, need for follow-up - Departure Departure Disposition: Home Clinical Impression: Tongue lesion Condition: Stable Critical Care Time: No Referrals: DOCTOR,NO FAMILY [Primary Care Provider] - Follow up/PCP as directed Additional Instructions: Take medication as prescribed. Follow-up with [facility] medical records office on Sunday or Sunday of next week to obtain results of the cultures taken. Follow-up with your primary care provider if symptoms still present next week. Prescriptions: Nystatin/TCN/Hc/Diphenhydram [Kathy's Magic Mouthwash] 30 ml PO Q8H #240 ml
[2021-10-27 10:54] LABS: INFLUENZA A NEGATIVE (NEGATIVE); INFLUENZA B NEGATIVE (NEGATIVE)
[2021-10-27 11:05] VITALS: BP 114/68
[2021-10-27 11:45] VITALS: PULSE 68; O2SAT 99
== END 2021-10-27 11:48 | disposition home or self-care (01) ==
LOC: ED 09:32
DX: K13.29 Other disturbances of oral epithelium, including tongue (principal); K14.9 Disease of tongue, unspecified; Z72.0 Tobacco use
CPT/HCPCS: 87070; 87077; 87186; 87254; 87400; 87651; 99283

== ENCOUNTER 2023-04-26 04:01 | Emergency (ER) | payer MEDICAID ==
[2023-04-26] MEDS ORDERED: Zofran 4 MG/2 ML VIAL IV ONE (04:19)
[2023-04-26] MEDS ORDERED: TORAdol 30 mg Injection IV ONE (04:19)
[2023-04-26] MEDS ORDERED: Sodium Chloride 0.9% 1000 ML 1,000 ML IV STA (04:19)
[2023-04-26] MEDS ORDERED: TORAdol 30 mg Injection ONE (04:27)
[2023-04-26] MEDS ORDERED: Zofran 4 MG/2 ML VIAL ONE (04:27)
[2023-04-26] MEDS ORDERED: Sodium Chloride 0.9% 1000 ML 1,000 ML ONE (04:27)
[2023-04-26 04:29] LABS: Absolute Neutrophil Ct (ANC) 6.42 x10^3/uL (1.4-6.9); BASOPHIL % 0.5 % (0.0-0.4); Basophil (Absolute #) 0.05 x10^3/uL (0-0.4); Eosinophil % 1.7 % (0.00-5.0); Eosinophil (Absolute #) 0.18 x10^3/uL (0-0.5); Hematocrit 44.6 % (42-50); Hemoglobin 15.4 g/dL (12.5-18.0); IMMATURE GRAN # 0.04 x10^3u/L (0.00-0.03); IMMATURE GRAN % 0.4 % (0.00-0.4); Lymphocyte (Absolute #) 3.34 x10^3/uL (1.0-4.6); Lymphocytes % 31.4 % (24.0-44.0); Mean Cell Volume 85.1 fL (78-100); Mean Corpuscular Hemoglobin 29.4 pg (26-32); Mean Corpuscular Hgb Concent. 34.5 g/dL (32-36); Mean Platelet Volume 8.9 fL (7.5-11.0); Monocyte (Absolute #) 0.62 x10^3/uL (0.0-1.3); Monocytes % 5.8 % (0.0-12.0); Neutrophil % 60.2 % (36.0-66.0); Platelet Count 319 x10^3/uL (150-450); Red Blood Count 5.24 x10^6/uL (4.1-5.6); Red Cell Distribution Width 12.9 % (11.5-14.0); White Blood Count 10.7 x10^3/uL (4.0-10.5)
[2023-04-26 04:49] LABS: ALKALINE PHOSPHATASE 79 U/L (38-126); ANION GAP 17.6 MEQ/L (5-15); BLOOD UREA NITROGEN 16 mg/dL (9-20); CHLORIDE 102 mmol/L (98-107); Calcium 9.4 mg/dL (8.4-10.2); Carbon Dioxide 23 mmol/L (22-30); EST GLOMERULAR FILTRATION RATE > 60.0 ML/MIN; Glucose 119 mg/dL (74-106); Potassium 3.8 mmol/L (3.5-5.1); SGOT/AST 60 U/L (17-59); SGPT/ALT 80 U/L (0-50); SODIUM 139 mmol/L (137-145)
[2023-04-26 05:07] LABS: Appearance Clear (Clear); Bacteria None Seen /HPF (None Seen); Bilirubin Negative (Negative); Blood Negative (Negative); Epithelial Cells None Seen /HPF (None Seen); Glucose, Urine Negative (Negative); Hyaline Casts NONE SEEN /LPF (0-2); Ketones Negative (Negative); Leukocyte Esterase Small (Negative); Nitrite Negative (Negative); Ph 5.5 (4.6-8.0); Protein,Urine Dip Negative (Negative); RBC 0-2 /HPF (0-5); Urobilinogen 0.2 mg/dL (0.2)
[2023-04-26 05:18] LABS: ADD URINE CULTURE? NO (NO)
--- NOTE | 2023-04-26 05:35 | ERPHSYRPT ---
- History of Present Illness Historian: patient Exam Limitations: no limitations Patient Subjective Stated Complaint: pt states he had sudden onset of lt side back pain. states he has hx of kidney stones and this feels the same. Triage Nursing Assessment: pt alert and oriented, answers questions approp. pt ambualtes into room with steady gait noted. respirations nonlabored. skin warm and dry. abd soft, nontender. bowel sounds present. Timing/Duration: today Activities at Onset: none Quality: aching Abdominal Pain Onset Location: flank Pain Radiation: no radiation Severity of Pain-Max: moderate Severity of Pain-Current: mild Modifying Factors: Improves With: nothing Associated Symptoms: denies symptoms Previous symptoms: same symptoms as today Hx Tetanus, Diphtheria Vaccination/Date Given: Yes Hx Influenza Vaccination/Date Given: No Hx Pneumococcal Vaccination/Date Given: No Immunizations Up to Date: Yes <JOHANNE HERNANDES - Last Filed: 04/26/23 07:23> <KELLY LAWRENCE - Last Filed: 04/26/23 07:58> - History of Present Illness Time Seen by Provider: 04/26/23 05:34 Physician History: Patient is a 27-year-old male presents to our ED with acute onset left flank pain. Patient states he was at home getting ready for work when pain occurred. Pain described as an ache that is localized to his left upper flank area. No radiation into groin area. No trauma. No fever. Symptoms are constant. Symptoms are moderate in intensity. No obvious hematuria. Patient has a history of kidney stones. Patient states pain similar. Patient voices no other complaints or concerns at this time. Portions of this note were created with voice recognition technology. There may be grammatical, spelling, punctuation or sound alike errors (JOHANNE HERNANDES) Allergies/Adverse Reactions: No Known Drug Allergies Allergy (Verified 04/26/23 04:18) Home Medications: No Reportable Medications [No Reported Medications] 04/26/23 [History] Travel Risk - International Travel Have you traveled outside of the country in past 3 weeks: No - Coronavirus Screening Are you exhibiting any of the following symptoms?: No Close contact with a COVID-19 positive Pt in past 14-21 Days: No - Vaccine Status Have you recieved a Covid-19 vaccination: No <JOHANNE HERNANDES - Last Filed: 04/26/23 07:23> - Review of Systems Constitutional: No Symptoms, No Fever, No Chills Eyes: No Symptoms Ears, Nose, & Throat: No Symptoms Respiratory: No Symptoms, No Cough, No Dyspnea Cardiac: No Symptoms, No Chest Pain, No Edema, No Syncope Abdominal/Gastrointestinal: No Symptoms, No Abdominal Pain, No Nausea, No Vomiting, No Diarrhea Genitourinary Symptoms: No Symptoms, No Dysuria Musculoskeletal: No Symptoms, No Back Pain, No Neck Pain Skin: No Symptoms, No Rash Neurological: No Symptoms, No Dizziness, No Focal Weakness, No Sensory Changes Psychological: No Symptoms Endocrine: No Symptoms Hematologic/Lymphatic: No Symptoms Immunological/Allergic: No Symptoms All Other Systems: Reviewed and Negative <JOHANNE HERNANDES - Last Filed: 04/26/23 07:23> - Past Medical History Pertinent Past Medical History: Yes Neurological History: No Pertinent History ENT History: No Pertinent History Cardiac History: No Pertinent History Respiratory History: Asthma Endocrine Medical History: No Pertinent History Musculoskeletal History: No Pertinent History GI Medical History: No Pertinent History History: No Pertinent History Psycho-Social History: No Pertinent History Male Reproductive Disorders: No Pertinent History Other Medical History: Childhood asthma,kidney stones - Past Surgical History Past Surgical History: Yes Neuro Surgical History: No Pertinent History Cardiac: No Pertinent History Respiratory: No Pertinent History Gastrointestinal: No Pertinent History Genitourinary: No Pertinent History Musculoskeletal: No Pertinent History Male Surgical History: No Pertinent History Other Surgical History: kidney stone removal - Social History Smoking Status: Current every day smoker How long have you smoked: years Exposure to second hand smoke: No Drug Use: marijuana Patient Lives Alone: No Significant Family History: no pertinent family hx <JOHANNE HERNANDES - Last Filed: 04/26/23 07:23> - Physical Exam General Appearance: no apparent distress, alert Eye Exam: PERRL/EOMI, eyes nml inspection Ears, Nose, Throat Exam: normal ENT inspection, pharynx normal, moist mucous membranes Neck Exam: normal inspection, non-tender, supple, full range of motion Respiratory Exam: normal breath sounds, lungs clear, airway intact, No respiratory distress Cardiovascular Exam: regular rate/rhythm, normal heart sounds, normal peripheral pulses Gastrointestinal/Abdomen Exam: soft, tenderness (Mild left flank tenderness), No mass Back Exam: normal inspection, normal range of motion, No CVA tenderness, No vertebral tenderness Extremity Exam: normal inspection, normal range of motion, pelvis stable Neurologic Exam: alert, oriented x 3, cooperative, normal mood/affect, nml cer ebellar function, sensation nml, No motor deficits Skin Exam: normal color, warm, dry Lymphatic Exam: No adenopathy SpO2 Interpretation: normal SpO2: 97 O2 Delivery: [facility] Air [facility] Filed: 04/26/23 07:23> - Nursing Vital Signs Nursing Vital Signs: Initial Vital Signs Temperature 97.7 F 04/26/23 04:08 Pulse Rate 80 04/26/23 04:08 Respiratory Rate 16 04/26/23 04:08 Blood Pressure 154/98 04/26/23 04:08 O2 Sat by Pulse Oximetry 100 04/26/23 04:08 Pain Scale Pain Intensity 6 - Course Nursing assessment & vital signs reviewed: Yes - CT Exams Abdomen/Pelvis CT Interpretation: Tele-radiologist Report (10 x 4 mm obstructing left ureterolithiasis with hydronephrosis and hydroureter. Bilateral nephr olithiasis.) <[facility] Filed: 04/26/23 07:23> Ordered Tests: Active Orders 24 hr Category Date Time Status IV Insertion STAT Care 04/26/23 04:19 Active ABDOMEN AND PELVIS W/0 CONTRAS [CT] Stat Exams 04/26/23 04:21 Completed CBC W DIFF Stat Lab 04/26/23 04:26 Completed CMP Stat Lab 04/26/23 04:26 Completed UA W/RFX UR CULTURE Stat Lab 04/26/23 04:51 Completed Medication Summary Generic Name Dose Route Start Last Admin Trade Name Freq PRN Reason Stop Dose Admin Ceftriaxone Sodium/Dextrose 1 g in 50 mls @ 100 mls/hr 04/26/23 10:00 04/26/23 06:32 Rocephin 1 Gm-D5w 50 Ml Bag IV 04/29/23 09:59 Infused [id number] MARIMAR Infusion Discontinued Medications Generic Name Dose Route Start Last Admin Trade Name Freq PRN Reason Stop Dose Admin Sodium Chloride 1,000 mls @ 999 mls/hr 04/26/23 04:19 04/26/23 06:32 Sodium Chloride 0.9% 1000 Ml IV 04/26/23 05:19 Infused .Q1H1M STA Infusion Sodium Chloride Confirm 04/26/23 04:27 Sodium Chloride 0.9% 1000 Ml Administered 04/26/23 04:28 Dose 1,000 mls @ ud .ROUTE .STK-MED ONE Ketorolac Tromethamine 30 mg 04/26/23 04:19 04/26/23 04:28 Ketorolac Tromethamine 30 Mg/Ml Inj IV 04/26/23 04:20 30 mg STAT ONE Administration Ketorolac Tromethamine Confirm 04/26/23 04:27 Ketorolac Tromethamine 30 Mg/Ml Inj Administered 04/26/23 04:28 Dose 30 mg .ROUTE .STK-MED ONE Ondansetron HCl 4 mg 04/26/23 04:19 04/26/23 04:28 Ondansetron Hcl 4 Mg/2 Ml Vial IV 04/26/23 04:20 4 mg STAT ONE Administration Ondansetron HCl Confirm 04/26/23 04:27 Ondansetron Hcl 4 Mg/2 Ml Vial Administered 04/26/23 04:28 Dose 4 mg .ROUTE .STK-MED ONE Lab/Rad Data: Laboratory Result Diagrams 04/26/23 04:26 04/26/23 04:26 Laboratory Results 04/26/23 04/26/23 04/26/23 Range/Units 04:51 04:26 04:26 WBC 10.7 H (4.0-10.5) x10^3/uL RBC 5.24 (4.1-5.6) x10^6/uL Hgb 15.4 (12.5-18.0) g/dL Hct 44.6 (42-50) % MCV 85.1 (78-100) fL MCH 29.4 (26-32) pg MCHC 34.5 (32-36) g/dL RDW 12.9 (11.5-14.0) % Plt Count 319 (150-450) x10^3/uL MPV 8.9 (7.5-11.0) fL Gran % 60.2 (36.0-66.0) % Immature Gran % (Auto) 0.4 (0.00-0.4) % Nucleat RBC Rel Count 0.0 (0.00-0.1) % Eos # (Auto) 0.18 (0-0.5) x10^3/uL Immature Gran # (Auto) 0.04 H (0.00-0.03) x10^3u/L Absolute Lymphs (auto) 3.34 (1.0-4.6) x10^3/uL Absolute Monos (auto) 0.62 (0.0-1.3) x10^3/uL Absolute Nucleated RBC 0.00 (0.00-0.01) x10^3u/L Lymphocytes % 31.4 (24.0-44.0) % Monocytes % 5.8 (0.0-12.0) % Eosinophils % 1.7 (0.00-5.0) % Basophils % 0.5 (0.0-0.4) % Absolute Granulocytes 6.42 (1.4-6.9) x10^3/uL Basophils # 0.05 (0-0.4) x10^3/uL Sodium 139 (137-145) mmol/L Potassium 3.8 (3.5-5.1) mmol/L Chloride 102 (98-107) mmol/L Carbon Dioxide 23 (22-30) mmol/L Anion Gap 17.6 H (5-15) MEQ/L BUN 16 (9-20) mg/dL Creatinine 0.90 (0.66-1.25) mg/dL Estimated GFR > 60.0 ML/MIN Glucose 119 H (74-106) mg/dL Calcium 9.4 (8.4-10.2) mg/dL Total Bilirubin 0.50 (0.2-1.3) mg/dL AST 60 H (17-59) U/L ALT 80 H (0-50) U/L Alkaline Phosphatase 79 (38-126) U/L Serum Total Protein 9.0 H (6.3-8.2) g/dL Albumin 5.0 (3.5-5.0) g/dL Urine Color Yellow (Yellow) Urine Appearance Clear (Clear) Urine pH 5.5 (4.6-8.0) Ur Specific [place] 1.010 (1.005-1.030) Urine Protein Negative (Negative) Urine Glucose (UA) Negative (Negative) mg/dL Urine Ketones Negative (Negative) Urine Blood Negative (Negative) Urine Nitrite Negative (Negative) Urine Bilirubin Negative (Negative) Urine Urobilinogen 0.2 (0.2) mg/dL Ur Leukocyte Esterase Small A (Negative) U Hyaline Cast (Auto) NONE SEEN (0-2) /LPF Urine Microscopic RBC 0-2 (0-5) /HPF Urine Microscopic WBC 6-10 A (0-5) /HPF Ur Epithelial Cells None Seen (None Seen) /HPF Urine Bacteria None Seen (None Seen) /HPF Urine Culture Reflexed NO (NO) - Progress Progress: improved Counseled pt/family regarding: lab results, diagnosis, need for follow-up, rad results <JOHANNE HERNANDES - Last Filed: 04/26/23 07:23> <KELLY LAWRENCE - Last Filed: 04/26/23 07:58> - Progress Progress Note: Patient is a 27-year-old male presents to our ED for evaluation of left-sided flank pain. Physical exam reveals mild left CVA tenderness. Testing includes CT abdomen pelvis which reveals an obstructing 10 mm x 4 mm ureterolithiasis. Also bilateral nephrolithiasis. Hydronephrosis hydroureter observed on the left side. CBC reveals a leukocytosis. CMP within normal limits. Normal BUN and creatinine. Urinalysis reveals a slight pyuria of 10 WBCs with leukocyte esterase positive. In light of the leukocytosis and pyuria with leukocyte esterase is likely patient experiencing a UTI along with the obstructing stone. Patient received a gram of Rocephin in our ED. Patient received Toradol and Zofran as well for pain and nausea. IV fluids infusing. Patient has a history of kidney stones. The last stone he experienced required a procedure for removal. In light of patient's infected stone we will consult urology for fu rther recommendation. Is currently the change of shift. Patient endorsed to Dr. Lawrence. He will speak to urology and make final disposition. Portions of this note were created with voice recognition technology. There may be grammatical, spelling, punctuation or sound alike errors Complexity of problem addressed is moderate acute complicated No critical care time Complexity of data reviewed and analyzed is extensive. Laboratory and imaging test ordered. Results reviewed and analyzed. Results were compared with patient's history and physical examination. The findings suggest infected kidney stone. This combination requires higher level of care requiring urology consultation and antibiotics. Risk of complication and or risk morbidity/mortality of patient management is moderate. Disposition pending consultation with urology. Dr. Lawrence will speak to urologist and make final disposition. Portions of this note were created with voice recognition technology. There may be grammatical, spelling, punctuation or sound alike errors 04/26/23 07:28 (JOHANNE HERNANDES) 04/26/23 07:[address] Chavarria, the emergency room physician at [facility] in [facility]. I reviewed the above history, physical findings and work- up results with him. He accepts the patient in transfer to the [facility] emergency department. (KELLY LAWRENCE) Medical Desision Making - Discussion of managment Care [facility]:: [facility] Reviewed:: Test results, Need for additional workup - Diagnostic Testing Diagnostic test were ordered, analyzed, and reviewed by me: Yes Radiological Interpretation: Reviewed by me, Teleradiologist Report - Risk of complications The pt has a high risk of morbidity or mortality based on: Decision regarding hospitilization or escalation of hosp level of care <KELLY LAWRENCE - Last Filed: 04/26/23 07:58> - Departure Critical Care Time: No <JOHANNE HERNANDES - Last Filed: 04/26/23 07:23> <KELLY LAWRENCE - Last Filed: 04/26/23 07:58> - Departure Clinical Impression: Leukocytosis, Pyuria, Leukocyte esterase, Flank pain, Ureterolithiasis, Hydronephrosis, Hydroureter, Nephrolithiasis, Renal colic on left side Condition: Stable Referrals: DOCTOR,NO FAMILY [Primary Care Provider] - Follow up/PCP as directed RADHA WADDELL [COURTESY STAFF] - Follow up/PCP as directed Additional Instructions: Discharge/Care Plan KELLY KING LETICIA was seen on 04/26/23 in the Emergency Room. The patient was counseled regarding Diagnosis,Lab results, Imaging studies, need for follow up and when to return to the Emergency Room. Prescriptions given: Discharge Note I have spoken with the patient and/or caregivers. I have explained the patient's condition, diagnosis and treatment plan based on the information available to me at this time. I have answered the patient's and/or caregiver's questions and addressed any concerns. The patient and/or caregivers have as good understanding of the patient's diagnosis, condition and treatment plan as can be expected at this point. The vital signs have been stable. The patient's condition is stable and appropriate for discharge from the emergency department. The patient will pursue further outpatient evaluation with the primary care physician or other designated or consulting physician as outlined in the discharge instructions. The patient and/or caregivers are agreeable to this plan of care and follow-up instructions have been explained in detail. The patient and/or caregivers have received these instruction. The patient/and or caregivers are aware that any significant change in condition or worsening of symptoms should prompt an immediate return to this or the closest emergency department or call 911.
[2023-04-26] MEDS ORDERED: ROCEPHIN 1 Gm-D5w 50 ml Bag** 1 G/50 ML IVPB IV ONE (05:50)
--- NOTE | 2023-04-26 06:34 | XRAY ---
CLINICAL HISTORY:lt flank pain COMPARISON:05/06/2020. TECHNIQUE:Axial sections of CT abdomen and pelvis were obtained without intravenous contrast administration. ;Reformatted coronal and sagittal images were acquired. FINDINGS: Obstructing calculus in the left proximal ureter measuring approximately 1 x 0.4 cm mm on coronal images. This was previously seen in the renal pelvis on prior CT examination and was resulting in partial obstruction. It is resulting in moderate left-sided hydronephrosis and proximal hydroureter. 2 mm left renal non-obstructing calculus in the upper pole calyx . Few calculi in the interpolar region of the right kidney, larger measuring 4 mm in size. No obstructive uropathy on the right side. The urinary bladder is normally distended. No definite intravesical abnormality. No significant wall thickening. Prostate appears unremarkable. The liver, spleen, gallbladder, bilateral adrenal glands, and pancreas appear grossly unremarkable on this unenhanced scan. The stomach is partially distended. Visualized large and small bowel loops appear unremarkable. The appendix is separately visualized. No evidence of acute appendicitis. No ascites or pneumoperitoneum. No significant abdominal or pelvic lymphadenopathy. Heart is normal in size. No pericardial effusion. Focal atherosclerotic calcific plaque in the abdominal aorta. No significant abnormality in the visualized lung bases. No acute bony abnormality. Mild degenerative changes in the visualized spine. IMPRESSION: 1. Left proximal obstructing ureteric calculus resulting in moderate left-sided hydronephrosis and hydroureter on current CT. This calculus was previously seen in the renal pelvis causing partial obstruction. 2. Bilateral renal non-obstructing calculi. No right-sided hydronephrosis. 3. No other significant interval change from prior CT examination. [facility] ER was called at [phone] at 6:30 AM INFORMATICA DEVELOPER, 04/26/2023 and Christen was informed about Significant Medical Findings. Electronically Signed by: Marleni Duncan MD. (04/26/2023 05:33:08 INFORMATICA DEVELOPER)
[2023-04-26 07:29] VITALS: O2SAT 97
[2023-04-26 08:16] VITALS: BP 124/77; PULSE 52
[2023-04-26] MEDS ORDERED: ROCEPHIN 1 Gm-D5w 50 ml Bag** 1 G/50 ML IVPB IV SCH (10:00)
== END 2023-04-26 09:00 | disposition short-term general hospital (02) ==
LOC: ED 04:01
DX: N13.2 Hydronephrosis with renal and ureteral calculous obstruction (principal); D72.829 Elevated white blood cell count, unspecified; R82.81 Pyuria; R10.9 Unspecified abdominal pain; R79.89 Other specified abnormal findings of blood chemistry; Z87.442 Personal history of urinary calculi; Z28.310 Unvaccinated for COVID-19; Z72.0 Tobacco use
CPT/HCPCS: 36000; 36415; 74176; 80053; 81001; 85025; 96365; 96374; 96375; 99285; J0696; J1885; J2405